=== PATIENT | male | born 1940 | race Caucasian/White ===

== ENCOUNTER 2016-10-25 09:28 | Inpatient (IN) | payer MEDICARE ==
[2016-10-25] VITALS (12 sets, daily range): BP systolic 92–138; BP diastolic 62–75; PULSE 63–83; RESP 18–29; TEMP 96.2–98.5; O2SAT 83–100
[~2016-10-25] VITALS: Ht 165.1 cm; Wt 65.1 kg
[2016-10-25] MEDS ORDERED: NS 1000P @30 MLS/HR (KVO) IV SCH (10:00)
[2016-10-25] MEDS ORDERED: TAMS0.4C4 PO (10:18)
[2016-10-25] MEDS ORDERED: METF1000 PO (10:18)
[2016-10-25] MEDS ORDERED: ATOR10TA15 PO (10:18)
[2016-10-25] MEDS ORDERED: IPRASOL INH (10:18)
[2016-10-25] MEDS ORDERED: LEVEMIR SQ (10:18)
[2016-10-25] MEDS ORDERED: FINA5TAB2 PO (10:18)
[2016-10-25] MEDS ORDERED: MONT10TA4 PO (10:18)
[2016-10-25] MEDS ORDERED: BACT400T PO (10:18)
[2016-10-25] MEDS ORDERED: HOME OXYGEN NAS.CANULA (10:18)
[2016-10-25] MEDS ORDERED: PRED10 PO (10:18)
[2016-10-25 10:40] LABS: AUTOMATED NEUTROPHIL # 12.1 TH/MM3 (1.8-7.7); BASOPHIL % 0.3 % (0.0-2.0); EOSINOPHIL # 0.4 TH/MM3 (0-0.4); EOSINOPHIL % 2.4 % (0.0-4.0); LYMPH % 12.7 % (9.0-44.0); LYMPHOCYTE # 1.9 TH/MM3 (1.0-4.8); MEAN CELL VOLUME 94.5 FL (80.0-100.0); MEAN CORPUSCULAR HEMOGLOBIN 31.9 PG (27.0-34.0); MEAN CORPUSCULAR HGB CONC 33.8 % (32.0-36.0); NEUT % 79.6 % (16.0-70.0); PLATELET COUNT 218 TH/MM3 (150-450); RED BLOOD COUNT 3.91 MIL/MM3 (4.50-5.90); WHITE BLOOD COUNT 15.2 TH/MM3 (4.0-11.0)
[2016-10-25 10:47] LABS: APTT (PATIENT) 23.6 SEC (24.3-30.1); PROTHROMBIN TIME - PATIENT 11.2 SEC (9.8-11.6)
[2016-10-25 10:48] LABS: HEMO FLAGS AUTO DIFF
[2016-10-25 10:53] LABS: BICARBONATE 26.4 MEQ/L (21.0-32.0); POTASSIUM 3.9 MEQ/L (3.5-5.1)
[2016-10-25] MEDS ORDERED: IOHEXOL 350 MG/ML 100 ML BTL (for Cath Lab) OTHER ONE (11:14)
[2016-10-25 11:38] LABS: BANDS 5 % (0-6); EOSINOPHILS 4 % (0-4); MYELOCYTES 2 % (0-0); NEUTROPHIL # MANUAL DIFF 12.8 TH/MM3 (1.8-7.7); POLYS (SEG NEUTROPHILS) 77 % (16-70); WBC DIFF SAMPLE 100
[2016-10-25 11:39] LABS: PLATELET ESTIMATE SMEAR NORMAL (NORMAL); PLATELET MORPHOLOGY NORMAL (NORMAL); SCAN/DIFF FINAL DIFF MANUAL
[2016-10-25] MEDS ORDERED: HEPARIN-NS/PF INJ 500 ML ONE (14:03)
[2016-10-25] MEDS ORDERED: MIDAZOLAM HCL 2 MG/2 ML VIAL ONE ×2 (14:04→15:47)
[2016-10-25] MEDS ORDERED: HEPARIN SODIUM - IV 10,000 UNITS/10 ML VIAL ONE (14:52)
[2016-10-25] MEDS ORDERED: TICAGRELOR 90 MG TAB PO ONE (15:56)
--- NOTE | 2016-10-25 16:42 | EKG ---
Date Performed: 10/25/2016 Time Performed: 11:00:56 PTAGE: 76 years EKG: Sinus rhythm with PAC(s) Inferior and anterior T wave changes are nonspecific Borderline ECG NO PREVIOUS TRACING DOCTOR: Fredy Wise Interpretating Date/Time 10/25/2016 16:41:03
[2016-10-25] MEDS ORDERED: BACITRACIN OINT 0.9 GM PKT TOP ONE (17:30)
[2016-10-25] MEDS ORDERED: SODIUM CHLOR 0.9% 1000 ML INJ 1,000 ML IV SCH (18:10)
[2016-10-25] MEDS ORDERED: LIDOCAINE HCL 1% 50 ML VIAL INFIL PRN (18:15)
[2016-10-25] MEDS ORDERED: LIDOCAINE 2% JELLY 30 ML TUBE TOP PRN (18:15)
[2016-10-25] MEDS ORDERED: ACETAMINOPHEN 325 MG TAB PO PRN (18:15)
[2016-10-25] MEDS ORDERED: MISC INFORMATION XX ONE (18:15)
[2016-10-25] MEDS ORDERED: ATROPINE SULFATE 1 MG/ML VIAL IV PRN (18:15)
[2016-10-25] MEDS ORDERED: SODIUM CHLOR 0.9% 250 ML INJ 250 ML IV PRN (18:15)
[2016-10-25] MEDS: ASPIRIN 81 MG CHEW TAB PO SCH (18:15)
--- NOTE | 2016-10-25 18:53 | HHI.PR ---
Immediate Post Op Note Procedure Date: Oct 25, 2016 Pre Op Diagnosis: Angina Post Op Diagnosis: CAD Surgeon: Justin Pacheco MD, Facc Box Office Manager(s): NONE Procedure: Cath, LAD stent Findings: Severe LAD stenosis Complications: none Specimen(s) removed: none Estimated blood loss: below 10 cc Patient to: Other Patient Condition: Good Justin Pacheco MD Oct 25, 2016 18:53
[2016-10-25 19:30] LABS: BLOOD GAS BASE EXCESS -2.9 mmol/L (-2-2); BLOOD GAS CARBOXYHEMOGLOBIN 1.9 % (0-4); BLOOD GAS HCO3 20 mmol/L (22-26); BLOOD GAS METHEMOGLOBIN 1.2 % (0-2); BLOOD GAS O2 HGB SATURATION 69 % (90-100); BLOOD GAS OXYGEN CONTENT 12.7 Vol % (12.0-20.0); BLOOD GAS PCO2 28 mmHg (38-42); BLOOD GAS PO2 36 mmHg (61-120); BLOOD GAS TOTAL HGB 13.2 G/DL (12.0-16.0); TEMP CORR TO 98.6
[2016-10-25 19:31] LABS: CRITICAL VALUE YES; DRAW SITE RT RADIAL; FIO2 100 %; LITER FLOW 15 L/M; NUMBER OF ARTERIAL PUNCTURES 1; OXYGEN DEVICE NONE REBREATHER; STAT YES; ULNAR PULSE PRESENT
[2016-10-25] MEDS ORDERED: ETOMIDATE 20 MG/10 ML VIAL ONE (19:54)
--- NOTE | 2016-10-25 19:57 | HHI.HP ---
HPI Service Critical Care Medicine Primary Care Physician Juan Lopez M.D. Admission Diagnosis Diagnosis: (1) Pulmonary fibrosis (2) Diastolic CHF, acute (3) S/P coronary artery stent placement (4) Arteriosclerotic heart disease (ASHD) (5) Respiratory failure, acute (6) Leukocytosis Travel History International Travel<30 Days: No Contact w/Intl Traveler <30 Da: No Traveled to Known Affected Are: No History of Present Illness History somewhat limited by patients degree of respiratory distress. 76-year-old male with past medical history of coronary artery disease , hyperlipidemia, diabetes mellitus, pulmonary fibrosis with 4 L O2 requirement , diabetes mellitus, who presented to [facility] today for outpatient cardiac catheterization. He underwent atherectomy and drug-eluting stent to the LAD (R femoral approach, s/p angioseal) by Dr. Pacheco. Post procedure (~16:15) he was on nonrebreather. He respiratory distress resulting in Halicat and transfer to ICU. He had been coughing a lot with some sputum production that was blood tinged. I was contacted upon arrival to evaluate patient who is tachypneic in 40s with increased work of breathing with sats 70% on NR. BP 138/71, sinus 70s. Placing on NIPPV. Denies chest pain. Had normal EF 55% by cath. He was recently hospitalized at [facility] for respiratory distress about 2 weeks ago and treated with steroids, nebs, levaquin. He is agreeable to intubation if needed. Review of Systems Respiratory: COMPLAINS OF: Sputum production, Shortness of breath Past Family Social History Allergies: Coded Allergies: Penicillin (Verified Allergy, Mild, 10/25/16) feet swelling Past Medical History Coronary artery disease Diabetes Hyperlipidemia Pulmonary fibrosis, diagnosed ~4 years ago. On 4 L home O2, no prior intubations -One prior hospitalization for respiratory symptoms, 2 weeks ago, [facility]. Was on Bipap and responded well. Reportedly all cultures negative. Had CT that showed "inflammation" - reportedly secondary to hypersensitivity pneumonitis. Has had lung biopsy. Followed by Dr. Garsia as outpatient. Also known to Dr. Ball from prior hospitalization BPH He reports the penicillin has previously caused feet swelling. Denies any respiratory symptoms, throat swelling, or hives. Past Surgical History Denies Reported Medications Finesteride 5 milligrams by mouth daily Prednisone 10 mg by mouth 3 times a day Tamulosin 0.4 mill grams by mouth daily at bedtime DuoNeb every 8 hours Metformin 1000 mg by mouth twice a day Detemir 8 units subcutaneous Singulair 10 mg by mouth daily at bedtime Bactrim 1 tab by mouth twice a day Family History Unable to obtain family history from patient due to his clinical condition. Reviewed EMR and did not locate any significant family medical history Social History Is a former smoker. Records indicate that he smoked about one year and quit smoking 40 years ago Drinks alcohol occasionally No illicit drug use Physical Exam Vital Signs Vital Signs Date Time Temp Pulse Resp B/P Pulse Ox O2 Delivery O2 Flow Rate FiO2 10/25/16 18:49 96.2 64 20 111/66 89 10/25/16 18:28 96.2 67 24 118/67 87 10/25/16 18:27 96.2 66 24 113/75 86 10/25/16 18:14 91 Non-Rebreather 15.00 100 10/25/16 18:00 96.2 65 24 113/72 88 10/25/16 17:50 96.2 65 24 113/72 88 10/25/16 10:15 97.5 63 18 92/62 94 Physical Exam Temps 98.5 blood pressure 138/71 pulse 68 sats 75% on nonrebreather GENERAL: Well-nourished, well-developed patient who is anxious appearing, and respiratory distress SKIN: Dry, no diaphoresis. HEAD: Atraumatic. Normocephalic. EYES: Pupils equal and round. No scleral icterus. No injection or drainage. ENT: No nasal bleeding or discharge. Mucous membranes moist, placing on Bipap. NECK: Trachea midline. No JVD. CARDIOVASCULAR: Regular rate and rhythm, sinus on monitor. No murmurs rubs or gallops. RESPIRATORY: Tachypneic with accessory muscle use. There are coarse bibasilar rales such as with pulmonary fibrosis, without wheezing or rhonchi GASTROINTESTINAL: Abdomen soft, non-tender, nondistended. Bowel sounds present. MUSCULOSKELETAL: Extremities without clubbing, cyanosis. No hematoma or bleeding noted right groin. Distal pulses intact. No significant edema. NEUROLOGICAL: Awake and alert. No obvious cranial nerve deficits. Motor grossly within normal limits, moving all extremities. Oriented, difficult to assess speech due to Bipap. Laboratory Laboratory Tests Test 10/25/16 10/25/16 09:55 10:18 White Blood Count 15.2 Red Blood Count 3.91 Hemoglobin 12.5 Hematocrit 37.0 Mean Corpuscular Volume 94.5 Mean Corpuscular Hemoglobin 31.9 Mean Corpuscular Hemoglobin 33.8 Concent Red Cell Distribution Width 14.0 Platelet Count 218 Mean Platelet Volume 7.2 Neutrophils (%) (Auto) 79.6 Lymphocytes (%) (Auto) 12.7 Monocytes (%) (Auto) 5.0 Eosinophils (%) (Auto) 2.4 Basophils (%) (Auto) 0.3 Neutrophils # (Auto) 12.1 Lymphocytes # (Auto) 1.9 Monocytes # (Auto) 0.8 Eosinophils # (Auto) 0.4 Basophils # (Auto) 0.0 CBC Comment AUTO DIFF Differential Total Cells 100 Counted Neutrophils % (Manual) 77 Band Neutrophils % 5 Lymphocytes % 11 Monocytes % 1 Eosinophils % 4 Neutrophils # (Manual) 12.8 Myelocytes 2 Differential Comment FINAL DIFF MANUAL Platelet Estimate NORMAL Platelet Morphology Comment NORMAL Red Cell Morphology Comment NORMAL Prothrombin Time 11.2 Prothromb Time International 1.0 Ratio Activated Partial 23.6 Thromboplast Time Sodium Level 140 Potassium Level 3.9 Chloride Level 106 Carbon Dioxide Level 26.4 Anion Gap 8 Blood Urea Nitrogen 21 Creatinine 1.00 Estimat Glomerular Filtration 72 Rate Random Glucose 114 Calcium Level 8.8 Blood Gas Puncture Site RT RADIAL Blood Gas Patient Temperature 98.6 Blood Gas HCO3 20 Blood Gas Base Excess -2.9 Blood Gas Oxygen Saturation 69 Arterial Blood pH 7.47 Arterial Blood Partial 28 Pressure CO2 Arterial Blood Partial 36 Pressure O2 Arterial Blood Oxygen Content 12.7 Arterial Blood 1.9 Carboxyhemoglobin Arterial Blood Methemoglobin 1.2 Blood Gas Hemoglobin 13.2 Oxygen Delivery Device NONE REBREATHER Blood Gas Liter Flow 15 Blood Gas Inspired Oxygen 100 Result Diagram: 10/25/1655 10/25/1655 Assessment and Plan Assessment and Plan NEURO: Denies pain. 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 Will continue Bipap as he appears to be responding. He is agreeable to intubation if needed Duoneb every 6 hours. Albuterol every 2 hours when necessary. Solumedrol 125 mg IV x1. Solumedrol 40 mg IV q8.Previously on prednisone [address] Garsia following recent hospitalization Continue Singulair 10 mg by mouth daily CXR with bilateral interstitial opacities. No prior for comparison. May be secondary ILD, though appears may be component of edema. Certified Residential Medication Aide indicated patient had received fluids and contrast during case. Will give lasix 40 mg IV in effort to avoid intubation. CV: CAD Hyperlipidemia Arthrectomy and FATIMAH to LAD per Dr. Pacheco 10/25/16, R femoral approach with angioseal Normal EF 55% per cath Doesn't look like stent occlusion because: EKG shows no ST deviation. Troponin 0.5. No chest pain. Discussed with RN, will ensure he gets Brilinta dose tonight. Continue Brilinta 90 po bid. Cardiology following, Dr. Pacheco. Dr. Blair updated overnight regarding transfer. GI: NPO. FEN/RENAL/Urology: BPH Continue finasteride 5 mg po daily, okay to hold tonights dose in view of respiratory distress. Domínguez needed to monitor UOP and because patient getting diuretic while in respiratory distress. ID: Leukocytosis -?steroid induced Had recent hospitalization 2 weeks ago. Cultures negative at that time, had been on bactrim as outpatient. Will check blood cultures and cover with aztreonam IV empirically given recent IPF exacerbation. HEME: Monitor CBC ENDO: Diabetes mellitus Hold metformin. Low dose insulin sliding scale ac/hs. PROPH: Heparin subcutaneous for DVT prophylaxis. Protonix 40 mg IV daily for stress ulcer prophylaxis ACCESS: Peripheral IV providing adequate access at this time Discussed with family medicine residents who responded to Halicat. Updated Dr. Blair, cardiology. Updated patient and his and bedside and questions answered. CCT 60 minutes exclusive of separately billable procedures. Elizabeth Romo MD Oct 25, 2016 19:57
[2016-10-25] MEDS ORDERED: PROPOFOL 1000 MG/100 ML INJ 100 ML ONE (19:58)
[2016-10-25] MEDS ORDERED: SODIUM CHLORIDE 0.9% FLUSH 5 ML FLUSH IVF PRN (20:00)
--- NOTE | 2016-10-25 20:05 | RADRPT ---
EXAM DATE/TIME: 10/25/2016 19:22 [place] COMPARISON: No previous studies available for comparison. INDICATIONS : Short of breath. MEDICAL HISTORY : Congestive heart failure. SURGICAL HISTORY : Pacemaker. ENCOUNTER: Initial ACUITY: 1 day PAIN SCORE: 0/10 LOCATION: Bilateral chest FINDINGS: The patient has a bilead pacemaker in place from the left subclavian approach. The hear t size is upper limits of normal. The lungs demonstrate diffuse interstitial disease. Significant e ffusion is not clearly seen. CONCLUSION: Diffuse interstitial disease. It is difficult to determine if this is acute or chron ic. If this is acute it could represent diffuse edema. Chronic interstitial disease could have a sim ilar appearance in the correct clinical situation. Pavan Azar MD on October 25, 2016 at 20:01 Board Certified Radiologist. This report was verified electronically.
[2016-10-25] MEDS ORDERED: methylPREDNISolone SOD SUCC 125 MG/2 ML VIAL IV PUSH ONE (20:15)
[2016-10-25] MEDS ORDERED: FUROSEMIDE 20 MG/2 ML VIAL IV PUSH ONE ×2 (20:15)
[2016-10-25] MEDS ORDERED: RESP: ALBUTEROL 2.5 MG/3 ML NEB (PRN) NEB (20:15)
[2016-10-25] MEDS ORDERED: RESP: ALBUTEROL 2.5 MG/IPRATROPIUM 0.5 MG NEB (SCH) NEB ONE (20:15)
[2016-10-25] MEDS: CARVEDILOL 3.125 MG TAB PO SCH (20:38)
[2016-10-25] MEDS: TAMSULOSIN HCL 0.4 MG CAP PO SCH (20:39)
[2016-10-25] MEDS: ATORVASTATIN 10 MG TAB PO SCH (20:39)
[2016-10-25] MEDS: SODIUM CHLORIDE 0.9% FLUSH 5 ML FLUSH IVF SCH (20:39)
[2016-10-25] MEDS: MONTELUKAST SODIUM 10 MG TAB PO SCH (20:40)
--- NOTE | 2016-10-25 20:42 | HHI.PR ---
Addendum to Inpatient Note Addendum Reason: Additional Documentation Additional Information S: CaitlinT called. Residents responded to patient in respiratory distress s/p cardiac catheterization and stenting of LAD. Per interview with patient's family , patient with a history of COPD and pulmonary fibrosis and recent ICU admission. Per nurse report, patient has been satting in the 80s for about 2 hours off and on since his cardiac catheterization procedure. O: Vitals: Afebrile, pulse 60s to 80s, respiratory rate 20s to 30s, blood pressure 100s over 60s to 70s, satting 70s to 80s on nonrebreather at 15 L/m Gen.: Patient in respiratory distress with increased work of breathing, still able to communicate. CV: Regular rate Respiratory: Respiratory distress with increased work of breathing, belly breathing, tripoding, tachypnea. Lungs clear to auscultation bilaterally. Patient observed coughing up grossly bloody sputum. Neuro: Awake and alert A/P: 76-year-old man with a history of COPD, pulmonary fibrosis, a few hours s/ p cardiac catheterization with stents to his LAD and respiratory distress. EKG, chest x-ray Troponin, CK-MB, CMP, CBC, ABG BiPAP and transfer to ICU/[facility] DuoNeb's, IV steroids Sputum Gram stain and culture Patient seen and discussed with Dr. Nagi Rivera. Discussed with family. Follow up: EKG consistent with prior EKGs. Accompanied patient to ICU under the care of Dr. Romo. Patient satting in the mid 90s on BiPAP. Vincent Rinaldi MD R1 Oct 25, 2016 20:42
[2016-10-25] MEDS ORDERED: SULFAMETHOXAZOLE-TRIMETHOPRIM 400-80 MG TAB PO SCH (21:00)
[2016-10-25 21:06] LABS: ALKALINE PHOSPHATASE 115 U/L (45-117); ALT (GPT) 33 U/L (12-78); ANION GAP 9 MEQ/L (5-15); AST (GOT) 32 U/L (15-37); BLOOD UREA NITROGEN 15 MG/DL (7-18); CHLORIDE 103 MEQ/L (98-107); GLOMERULAR FILTRATION RATE 78 ML/MIN (>89); SODIUM (NA) 134 MEQ/L (136-145); TOTAL BILIRUBIN ADULT 0.6 MG/DL (0.2-1.0)
[2016-10-25] MEDS: RESP: ALBUTEROL 2.5 MG/IPRATROPIUM 0.5 MG NEB (SCH) NEB (21:10)
[2016-10-25 21:14] LABS: CREATINE KINASE 75 U/L (39-308); POTASSIUM 4.8 MEQ/L (3.5-5.1)
[2016-10-25 21:53] LABS: BLOOD, URINE NEG (NEG); GLUCOSE,URINE TRACE mg/dL (NEG); KETONE, URINE NEG (NEG); NITRITE,URINE NEG (NEG); PH, URINE 5.5 (5.0-8.5); SQUAMOUS EPITHELIAL CELL URINE <1 /hpf (0-5); URINE COLOR LIGHT-YELLOW (YELLW/STRAW)
[2016-10-25 21:56] LABS: COMMENT (UR) CATH-CULT NOT IND; CULTURE IF INDICATED CATH CULTURE NOT IND
[2016-10-25 23:02] LABS: AUTOMATED NEUTROPHIL # 15.3 TH/MM3 (1.8-7.7); BASOPHIL % 0.1 % (0.0-2.0); EOSINOPHIL # 0.4 TH/MM3 (0-0.4); EOSINOPHIL % 2.5 % (0.0-4.0); HEMATOCRIT 38.7 % (39.0-51.0); LYMPH % 2.8 % (9.0-44.0); LYMPHOCYTE # 0.5 TH/MM3 (1.0-4.8); MEAN CELL VOLUME 92.8 FL (80.0-100.0); MEAN CORPUSCULAR HEMOGLOBIN 32.2 PG (27.0-34.0); MEAN CORPUSCULAR HGB CONC 34.7 % (32.0-36.0); MONO % 2.4 % (0.0-8.0); NEUT % 92.2 % (16.0-70.0); PLATELET COUNT 239 TH/MM3 (150-450); RED BLOOD COUNT 4.17 MIL/MM3 (4.50-5.90); RED CELL DISTRIBUTION WIDTH 14.2 % (11.6-17.2); WHITE BLOOD COUNT 16.6 TH/MM3 (4.0-11.0)
[2016-10-25 23:09] LABS: HEMO FLAGS AUTO DIFF
[2016-10-25] MEDS: AZTREONAM INJ 1,000 MG in SODIUM CHLORIDE 0.9% INJ 100 ML IV SCH (23:26)
[2016-10-25] MEDS ORDERED: CHLORHEXIDINE GLUCONATE 2 % 1 PACK (2 CLOTHS)(extra cloths) TOP PRN (23:30)
[2016-10-25 23:38] LABS: BLOOD GAS BASE EXCESS -2.9 mmol/L (-2-2); BLOOD GAS CARBOXYHEMOGLOBIN 1.9 % (0-4); BLOOD GAS HCO3 20 mmol/L (22-26); BLOOD GAS METHEMOGLOBIN 1.2 % (0-2); BLOOD GAS O2 HGB SATURATION 69 % (90-100); BLOOD GAS OXYGEN CONTENT 12.7 Vol % (12.0-20.0); BLOOD GAS PCO2 28 mmHg (38-42); BLOOD GAS PO2 36 mmHg (61-120); BLOOD GAS TOTAL HGB 13.2 G/DL (12.0-16.0); TEMP CORR TO 98.6
[2016-10-25 23:39] LABS: CRITICAL VALUE YES; DRAW SITE RT RADIAL; FIO2 100 %; NUMBER OF ARTERIAL PUNCTURES 1; OXYGEN DEVICE NONE REBREATHER; STAT YES; ULNAR PULSE PRESENT
[2016-10-25 23:41] LABS: LITER FLOW 15 L/M
[2016-10-26] VITALS (15 sets, daily range): BP systolic 95–117; BP diastolic 54–61; PULSE 59–76; RESP 24–28; TEMP 97.5–98.2; O2SAT 87–99
[2016-10-26 00:39] LABS: BANDS 9 % (0-6); MYELOCYTES 2 % (0-0); NEUTROPHIL # MANUAL DIFF 15.4 TH/MM3 (1.8-7.7); POLYS (SEG NEUTROPHILS) 81 % (16-70); PROMYELOCYTES 1 % (0-0); WBC DIFF SAMPLE 100
[2016-10-26 00:41] LABS: PLATELET ESTIMATE SMEAR NORMAL (NORMAL); PLATELET MORPHOLOGY NORMAL (NORMAL); SCAN/DIFF FINAL DIFF MANUAL
[2016-10-26] MEDS: RESP: ALBUTEROL 2.5 MG/IPRATROPIUM 0.5 MG NEB (SCH) NEB ×4 (03:32→20:06)
[2016-10-26] MEDS: CHLORHEXIDINE GLUCONATE 2 % 1 PACK (2 CLOTHS)(taper/protocol) TOP SCH (04:00)
[2016-10-26] MEDS: AZTREONAM INJ 1,000 MG in SODIUM CHLORIDE 0.9% INJ 100 ML IV SCH ×3 (05:55→20:27)
[2016-10-26] MEDS ORDERED: DEXTROSE 50% IN WATER 50 ML VIAL(D50) IV PUSH PRN ×2 (07:00→08:45)
[2016-10-26] MEDS ORDERED: GLUCAGON 1 MG/ML VIAL OTHER PRN ×2 (07:00→08:45)
[2016-10-26] MEDS: CHLORHEXIDINE 0.12% (ORAL KIT) 15 ML CUP MT SCH ×2 (07:30→20:00)
[2016-10-26 07:35] LABS: AUTOMATED NEUTROPHIL # 11.9 TH/MM3 (1.8-7.7); BASOPHIL % 0.1 % (0.0-2.0); EOSINOPHIL % 0.1 % (0.0-4.0); HEMATOCRIT 37.2 % (39.0-51.0); LYMPH % 4.8 % (9.0-44.0); LYMPHOCYTE # 0.6 TH/MM3 (1.0-4.8); MEAN CORPUSCULAR HEMOGLOBIN 31.9 PG (27.0-34.0); MONO % 1.7 % (0.0-8.0); NEUT % 93.3 % (16.0-70.0); PLATELET COUNT 231 TH/MM3 (150-450); RED BLOOD COUNT 3.96 MIL/MM3 (4.50-5.90); RED CELL DISTRIBUTION WIDTH 13.9 % (11.6-17.2); WHITE BLOOD COUNT 12.8 TH/MM3 (4.0-11.0)
[2016-10-26 07:38] LABS: HEMO FLAGS AUTO DIFF
[2016-10-26] MEDS: RESP: ALBUTEROL 2.5 MG/IPRATROPIUM 0.5 MG NEB (SCH) INH ×3 (08:00→16:00)
[2016-10-26 08:08] LABS: ALKALINE PHOSPHATASE 104 U/L (45-117); ALT (GPT) 27 U/L (12-78); ANION GAP 11 MEQ/L (5-15); AST (GOT) 16 U/L (15-37); BICARBONATE 27.3 MEQ/L (21.0-32.0); BLOOD UREA NITROGEN 21 MG/DL (7-18); CHLORIDE 98 MEQ/L (98-107); GLOMERULAR FILTRATION RATE 62 ML/MIN (>89); HDL CHOLESTEROL 53.6 MG/DL (40.0-60.0); LDL CHOLESTEROL 85 MG/DL (0-99); POTASSIUM 4.3 MEQ/L (3.5-5.1); SODIUM (NA) 136 MEQ/L (136-145); TOTAL BILIRUBIN ADULT 0.6 MG/DL (0.2-1.0)
[2016-10-26 08:18] LABS: CREATINE KINASE 31 U/L (39-308)
[2016-10-26] MEDS: PANTOPRAZOLE SODIUM 40 MG VIAL IV PUSH SCH (08:41)
[2016-10-26] MEDS: HEPARIN SODIUM - SQ 10,000 UNITS/ML VIAL SQ SCH ×2 (08:42→20:24)
[2016-10-26] MEDS: CARVEDILOL 3.125 MG TAB PO SCH ×2 (08:42→20:23)
[2016-10-26] MEDS: ASPIRIN 81 MG CHEW TAB PO SCH (08:42)
[2016-10-26] MEDS: FINASTERIDE 5 MG TAB PO SCH (08:42)
[2016-10-26] MEDS: TICAGRELOR 90 MG TAB PO SCH ×2 (08:42→20:23)
[2016-10-26] MEDS: SODIUM CHLORIDE 0.9% FLUSH 5 ML FLUSH IVF SCH ×2 (08:43→20:22)
--- NOTE | 2016-10-26 08:43 | HHI.CCPN ---
Subjective Remarks/Hospital Course 76-year-old male with past medical history of coronary artery disease , hyperlipidemia, diabetes mellitus, pulmonary fibrosis with 4 L O2 requirement , diabetes mellitus, who presented to [facility] today for outpatient cardiac catheterization. He underwent atherectomy and drug-eluting stent to the LAD (R femoral approach, s/p angioseal) by Dr. Pacheco. Post procedure (~16:15) he was on nonrebreather. He respiratory distress resulting in Halicat and transfer to ICU. He had been coughing a lot with some sputum production that was blood tinged. I was contacted upon arrival to evaluate patient who is tachypneic in 40s with increased work of breathing with sats 70% on NR. BP 138/71, sinus 70s. Placing on NIPPV. Denies chest pain. Had normal EF 55% by cath. He was recently hospitalized at [facility] for respiratory distress about 2 weeks ago and treated with steroids, nebs, levaquin. He is agreeable to intubation if needed. 10/26 Patient is on BIPAP 8 with 40% FIO2. Afebrile. Feeling better he is on 4L oxygen at home for his pulm fibrosis. Objective Vital Signs Date Time Temp Pulse Resp B/P Pulse Ox O2 Delivery O2 Flow Rate FiO2 10/26/16 08:01 90 Nasal Cannula 5.00 10/26/16 08:00 61 10/26/16 08:00 97.5 25 114/61 10/26/16 04:26 40 Intake and Output 10/25/16 10/25/16 10/26/16 08:00 16:00 00:00 Output Total 1250 ml Balance -1250 ml Result Diagram: 10/26/16 0650 10/26/16 0650 Other Results Laboratory Tests Test 10/25/16 10/25/16 10/25/16 10/25/16 09:55 10:18 19:18 20:22 White Blood Count 15.2 TH/MM3 Red Blood Count 3.91 MIL/MM3 Hemoglobin 12.5 GM/DL Hematocrit 37.0 % Mean Corpuscular Volume 94.5 FL Mean Corpuscular Hemoglobin 31.9 PG Mean Corpuscular Hemoglobin 33.8 % Concent Red Cell Distribution Width 14.0 % Platelet Count 218 TH/MM3 Mean Platelet Volume 7.2 FL Neutrophils (%) (Auto) 79.6 % Lymphocytes (%) (Auto) 12.7 % Monocytes (%) (Auto) 5.0 % Eosinophils (%) (Auto) 2.4 % Basophils (%) (Auto) 0.3 % Neutrophils # (Auto) 12.1 TH/MM3 Lymphocytes # (Auto) 1.9 TH/MM3 Monocytes # (Auto) 0.8 TH/MM3 Eosinophils # (Auto) 0.4 TH/MM3 Basophils # (Auto) 0.0 TH/MM3 CBC Comment AUTO DIFF Differential Total Cells 100 Counted Neutrophils % (Manual) 77 % Band Neutrophils % 5 % Lymphocytes % 11 % Monocytes % 1 % Eosinophils % 4 % Neutrophils # (Manual) 12.8 TH/MM3 Myelocytes 2 % Differential Comment FINAL DIFF MANUAL Platelet Estimate NORMAL Platelet Morphology Comment NORMAL Red Cell Morphology Comment NORMAL Prothrombin Time 11.2 SEC Prothromb Time International 1.0 RATIO Ratio Activated Partial 23.6 SEC Thromboplast Time Sodium Level 140 MEQ/L Potassium Level 3.9 MEQ/L Chloride Level 106 MEQ/L Carbon Dioxide Level 26.4 MEQ/L Anion Gap 8 MEQ/L Blood Urea Nitrogen 21 MG/DL Creatinine 1.00 MG/DL Estimat Glomerular Filtration 72 ML/MIN Rate Random Glucose 114 MG/DL Calcium Level 8.8 MG/DL Blood Gas Puncture Site RT RADIAL RT RADIAL Blood Gas Patient Temperature 98.6 98.6 Blood Gas HCO3 20 mmol/L 20 mmol/L Blood Gas Base Excess -2.9 mmol/L -2.9 mmol/L Blood Gas Oxygen Saturation 69 % 69 % Arterial Blood pH 7.47 7.47 Arterial Blood Partial 28 mmHg 28 mmHg Pressure CO2 Arterial Blood Partial 36 mmHg 36 mmHg Pressure O2 Arterial Blood Oxygen Content 12.7 Vol % 12.7 Vol % Arterial Blood 1.9 % 1.9 % Carboxyhemoglobin Arterial Blood Methemoglobin 1.2 % 1.2 % Blood Gas Hemoglobin 13.2 G/DL 13.2 G/DL Oxygen Delivery Device NONE NONE REBREATHER REBREATHER Blood Gas Liter Flow 15 L/M 15 L/M Blood Gas Inspired Oxygen 100 % 100 % Urine Color LIGHT-YELLOW Urine Turbidity CLEAR Urine pH 5.5 Urine Specific [place] GREATER THAN 1.050 Urine Protein TRACE mg/dL Urine Glucose (UA) TRACE mg/dL Urine Ketones NEG mg/dL Urine Occult Blood NEG Urine Nitrite NEG Urine Bilirubin NEG Urine Urobilinogen LESS THAN 2.0 MG/DL Urine Leukocyte Esterase NEG Urine WBC 1 /hpf Urine Squamous Epithelial <1 /hpf Cells Microscopic Urinalysis Comment CATH-CULT NOT IND Test 10/25/16 10/25/16 10/25/16 10/26/16 20:29 21:30 22:37 06:50 Sodium Level 134 MEQ/L 136 MEQ/L Potassium Level 4.8 MEQ/L 4.3 MEQ/L Chloride Level 103 MEQ/L 98 MEQ/L Carbon Dioxide Level 22.0 MEQ/L 27.3 MEQ/L Anion Gap 9 MEQ/L 11 MEQ/L Blood Urea Nitrogen 15 MG/DL 21 MG/DL Creatinine 0.94 MG/DL 1.14 MG/DL Estimat Glomerular Filtration 78 ML/MIN 62 ML/MIN Rate Random Glucose 139 MG/DL 232 MG/DL Calcium Level 8.4 MG/DL 8.4 MG/DL Total Bilirubin 0.6 MG/DL 0.6 MG/DL Aspartate Amino Transf 32 U/L 16 U/L (AST/SGOT) Alanine Aminotransferase 33 U/L 27 U/L (ALT/SGPT) Alkaline Phosphatase 115 U/L 104 U/L Total Creatine Kinase 75 U/L 31 U/L Troponin I 0.05 NG/ML Total Protein 6.7 GM/DL 6.3 GM/DL Albumin 3.3 GM/DL 3.0 GM/DL Nasal Screen MRSA (PCR) NEGATIVE White Blood Count 16.6 TH/MM3 12.8 TH/MM3 Red Blood Count 4.17 MIL/MM3 3.96 MIL/MM3 Hemoglobin 13.4 GM/DL 12.6 GM/DL Hematocrit 38.7 % 37.2 % Mean Corpuscular Volume 92.8 FL 94.0 FL Mean Corpuscular Hemoglobin 32.2 PG 31.9 PG Mean Corpuscular Hemoglobin 34.7 % 34.0 % Concent Red Cell Distribution Width 14.2 % 13.9 % Platelet Count 239 TH/MM3 231 TH/MM3 Mean Platelet Volume 6.9 FL 7.0 FL Neutrophils (%) (Auto) 92.2 % 93.3 % Lymphocytes (%) (Auto) 2.8 % 4.8 % Monocytes (%) (Auto) 2.4 % 1.7 % Eosinophils (%) (Auto) 2.5 % 0.1 % Basophils (%) (Auto) 0.1 % 0.1 % Neutrophils # (Auto) 15.3 TH/MM3 11.9 TH/MM3 Lymphocytes # (Auto) 0.5 TH/MM3 0.6 TH/MM3 Monocytes # (Auto) 0.4 TH/MM3 0.2 TH/MM3 Eosinophils # (Auto) 0.4 TH/MM3 0.0 TH/MM3 Basophils # (Auto) 0.0 TH/MM3 0.0 TH/MM3 CBC Comment AUTO DIFF AUTO DIFF Differential Total Cells 100 Counted Neutrophils % (Manual) 81 % Band Neutrophils % 9 % Lymphocytes % 2 % Monocytes % 5 % Neutrophils # (Manual) 15.4 TH/MM3 Myelocytes 2 % Promyelocytes 1 % Differential Comment FINAL DIFF MANUAL Platelet Estimate NORMAL Platelet Morphology Comment NORMAL Red Cell Morphology Comment NORMAL Triglycerides Level 143 MG/DL Cholesterol Level 167 MG/DL LDL Cholesterol 85 MG/DL HDL Cholesterol 53.6 MG/DL Cholesterol/HDL Ratio 3.11 RATIO Imaging Last Impressions Chest X-Ray 10/25/16 0000 Signed Impressions: Service Date/Time: Tuesday, October 25, 2016 19:22 - CONCLUSION: Diffuse interstitial disease. It is difficult to determine if this is acute or chronic. If this is acute it could represent diffuse edema. Chronic interstitial disease could have a similar appearance in the correct clinical situation. Pavan Azar MD Objective Remarks GENERAL: Well-nourished, well-developed patient on BIPAP 15/8 with 40% FIO2. SKIN: Dry, no diaphoresis. HEAD: Atraumatic. Normocephalic. EYES: Pupils equal and round. No scleral icterus. No injection or drainage. ENT: No nasal bleeding or discharge. Mucous membranes moist, placing on Bipap. NECK: Trachea midline. No JVD. CARDIOVASCULAR: Regular rate and rhythm, sinus on monitor. No murmurs rubs or gallops. RESPIRATORY: coarse bibasilar rales without wheezing , b/l equal air entry. GASTROINTESTINAL: Abdomen soft, non-tender, nondistended. Bowel sounds present. MUSCULOSKELETAL: Extremities without clubbing, cyanosis. No hematoma or bleeding noted right groin. Distal pulses intact. No significant edema. NEUROLOGICAL: Awake and alert. No obvious cranial nerve deficits. Motor grossly within normal limits, moving all extremities. A/P Assessment and Plan NEURO: Awake and alert, avoid sedatives. 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 Hold PO prednisone Continue Singulair 10 mg by mouth daily CXR with bilateral interstitial opacities. No prior for comparison. May be secondary ILD, though appears may be component of edema. CV: CAD Hyperlipidemia Arthrectomy and FATIMAH to LAD per Dr. Pacheco 10/25/16, R femoral approach with angioseal Monitor HR and BP keep MAP>65mmHg Normal EF 55% per cath Continue ASA<,Lipitor , Coreg 3.125mg BID, Brilinta 90 mg po bid. Cardiology following, Dr. Pacheco. GI: On Heart healthy diet RENAL/Urology: BPH Continue finasteride 5 mg po daily, Monitor renal function, I/O's, electrolytes replacement as needed. ID: Leukocytosis -?steroid induced ( trending down) Continue empiric abx (Aztreonam IV) given recent IPF exacerbation. Follow up on BC, check sputum cx, strep pneumonia and Legionella urinary Ag HEME: Monitor CBC ENDO: Diabetes mellitus Place on medium SSI with accuchecks. PROPH: Heparin subcutaneous for DVT prophylaxis. Protonix 40 mg IV daily for stress ulcer prophylaxis ACCESS: Peripheral IV providing adequate access at this time Level 3 Virgen Bernal MD Oct 26, 2016 08:43
[2016-10-26] MEDS: INSULIN NovoLIN REGULAR SUPPLEMENTAL SCALE SQ SCH ×3 (08:45→20:24)
[2016-10-26] MEDS ORDERED: predniSONE 10 MG TAB PO SCH (09:00)
--- NOTE | 2016-10-26 09:08 | PD.CARD.PN ---
Subjective Subjective Remarks Events of last evening noted. Patient breathing much better this AM. Denies CP. Objective Medications Current Medications Medications (Trade) Dose Ordered Sig/Gino Route PRN Reason Start Time Stop Time Status Last Admin Dose Admin Finasteride (Proscar) 5 mg DAILY PO 10/26/16 09:00 10/26/16 08:42 Montelukast Sodium (Singulair) 10 mg HS PO 10/25/16 21:00 Prednisone (Deltasone) 10 mg TID PO 10/26/16 09:00 Hold Tamsulosin HCl (Flomax) 0.4 mg HS PO 10/25/16 21:00 Lidocaine HCl (Xylocaine 2% Jelly) 1 applic UNSCH PRN TOP CATHETER INSERTION 10/25/16 18:15 Acetaminophen (Tylenol) 325 mg Q4H PRN PO PAIN SCALE 1 TO 5 10/25/16 18:15 Temazepam (Restoril) 15 mg HS PRN PO SLEEP 10/25/16 18:15 Aspirin (Aspirin Chew) 81 mg DAILY PO 10/25/16 18:15 10/26/16 08:42 Ticagrelor (Brilinta) 90 mg BID PO 10/26/16 09:00 10/26/16 08:42 Atropine Sulfate (Atropine Inj) 0.5 mg UNSCH PRN IV VAGAL REPONSE 10/25/16 18:15 Lidocaine HCl (Xylocaine 1% Inj (50 ml)) 10 ml UNSCH PRN INFIL SHEATH REMOVAL 10/25/16 18:15 10/26/16 18:14 Carvedilol (Coreg) 3.125 mg BID PO 10/25/16 21:00 10/26/16 08:42 Atorvastatin Calcium (Lipitor) 40 mg HS PO 10/25/16 21:00 IV Flush (NS Flush) 2 ml UNSCH PRN IVF FLUSH AFTER USING IV ACCESS 10/25/16 20:00 IV Flush (NS Flush) 2 ml BID IVF 10/25/16 21:00 10/26/16 08:43 Chlorhexidine Gluconate 15 ml 15 ml BID@08,20 MT 10/25/16 20:00 Aztreonam/Sodium Chloride (Azactam Inj/NS Inj) 100 ml @ 200 mls/hr Q8H IV 10/25/16 21:00 10/26/16 05:55 Miscellaneous Information Patient in critical care unit? Ass... Q361D XX 10/25/16 23:30 10/25/16 23:26 Chlorhexidine Gluconate (Chlorhexidine 2% Cloth) 3 pack DAILY@04 TOP 10/26/16 04:00 10/30/16 04:01 10/26/16 04:00 Chlorhexidine Gluconate (Chlorhexidine 2% Cloth) 3 pack UNSCH PRN TOP HYGIENIC CARE 10/25/16 23:30 10/30/16 23:20 Dextrose (D50w (Vial) Inj) 25 ml UNSCH PRN IV PUSH HYPOGLYCEMIA-SEE COMMENTS 10/26/16 07:00 Glucagon (Glucagon Inj) 1 mg UNSCH PRN OTHER HYPOGLYCEMIA-SEE COMMENTS 10/26/16 07:00 Pantoprazole Sodium (Protonix Inj) 40 mg Q24H IV PUSH 10/26/16 07:00 10/26/16 08:41 Heparin Sodium (Porcine) (Heparin Inj) 5,000 units Q12HR SQ 10/26/16 09:00 10/26/16 08:42 Methylprednisolone Sodium Succinate (SoluMEDROL INJ) 40 mg Q8HR IV PUSH 10/26/16 08:45 UNV Dextrose (D50w (Vial) Inj) 25 ml UNSCH PRN IV PUSH HYPOGLYCEMIA-SEE COMMENTS 10/26/16 08:45 UNV Glucagon (Glucagon Inj) 1 mg UNSCH PRN OTHER HYPOGLYCEMIA-SEE COMMENTS 10/26/16 08:45 UNV Insulin Human Regular (NovoLIN R SUPPLEMENTAL SCALE) 1 Q6H SQ 10/26/16 08:45 UNV Vital Signs / I&O Vital Signs Date Time Temp Pulse Resp B/P Pulse Ox O2 Delivery O2 Flow Rate FiO2 10/26/16 08:01 90 Nasal Cannula 5.00 10/26/16 08:00 61 10/26/16 08:00 97.5 61 25 114/61 99 10/26/16 06:00 61 10/26/16 04:26 97 40 10/26/16 04:00 97.9 60 26 106/60 97 10/26/16 04:00 60 10/26/16 02:00 59 10/26/16 01:02 96 40 10/26/16 00:00 98.2 61 28 95/54 98 10/26/16 00:00 61 10/25/16 22:00 64 10/25/16 21:10 100 60 10/25/16 20:15 100 100 10/25/16 20:13 98.5 83 29 138/71 83 10/25/16 20:00 72 10/25/16 18:49 96.2 64 20 111/66 89 10/25/16 18:28 96.2 67 24 118/67 87 10/25/16 18:27 96.2 66 24 113/75 86 10/25/16 18:14 91 Non-Rebreather 15.00 100 10/25/16 18:00 96.2 65 24 113/72 88 10/25/16 17:50 96.2 65 24 113/72 88 10/25/16 10:15 97.5 63 18 92/62 94 I/O 10/25/16 10/25/16 10/25/16 10/26/16 10/26/16 10/26/16 07:00 15:00 23:00 07:00 15:00 23:00 Intake Total 156 ml Output Total 1250 ml 1000 ml Balance -1250 ml -844 ml Intake IV Total 156 ml Output Urine Total 1250 ml 1000 ml Physical Exam VSS, afeb. No JVD Lungs few basilar cracles. Heart: RRR Ext: Right groin cath site stable. No edema . Well perfused . Neuro: Intact Laboratory Laboratory Tests Test 10/25/16 10/25/16 10/25/16 10/25/16 09:55 10:18 19:18 20:22 White Blood Count 15.2 TH/MM3 Red Blood Count 3.91 MIL/MM3 Hemoglobin 12.5 GM/DL Hematocrit 37.0 % Mean Corpuscular Volume 94.5 FL Mean Corpuscular Hemoglobin 31.9 PG Mean Corpuscular Hemoglobin 33.8 % Concent Red Cell Distribution Width 14.0 % Platelet Count 218 TH/MM3 Mean Platelet Volume 7.2 FL Neutrophils (%) (Auto) 79.6 % Lymphocytes (%) (Auto) 12.7 % Monocytes (%) (Auto) 5.0 % Eosinophils (%) (Auto) 2.4 % Basophils (%) (Auto) 0.3 % Neutrophils # (Auto) 12.1 TH/MM3 Lymphocytes # (Auto) 1.9 TH/MM3 Monocytes # (Auto) 0.8 TH/MM3 Eosinophils # (Auto) 0.4 TH/MM3 Basophils # (Auto) 0.0 TH/MM3 CBC Comment AUTO DIFF Differential Total Cells 100 Counted Neutrophils % (Manual) 77 % Band Neutrophils % 5 % Lymphocytes % 11 % Monocytes % 1 % Eosinophils % 4 % Neutrophils # (Manual) 12.8 TH/MM3 Myelocytes 2 % Differential Comment FINAL DIFF MANUAL Platelet Estimate NORMAL Platelet Morphology Comment NORMAL Red Cell Morphology Comment NORMAL Prothrombin Time 11.2 SEC Prothromb Time International 1.0 RATIO Ratio Activated Partial 23.6 SEC Thromboplast Time Sodium Level 140 MEQ/L Potassium Level 3.9 MEQ/L Chloride Level 106 MEQ/L Carbon Dioxide Level 26.4 MEQ/L Anion Gap 8 MEQ/L Blood Urea Nitrogen 21 MG/DL Creatinine 1.00 MG/DL Estimat Glomerular Filtration 72 ML/MIN Rate Random Glucose 114 MG/DL Calcium Level 8.8 MG/DL Blood Gas Puncture Site RT RADIAL RT RADIAL Blood Gas Patient Temperature 98.6 98.6 Blood Gas HCO3 20 mmol/L 20 mmol/L Blood Gas Base Excess -2.9 mmol/L -2.9 mmol/L Blood Gas Oxygen Saturation 69 % 69 % Arterial Blood pH 7.47 7.47 Arterial Blood Partial 28 mmHg 28 mmHg Pressure CO2 Arterial Blood Partial 36 mmHg 36 mmHg Pressure O2 Arterial Blood Oxygen Content 12.7 Vol % 12.7 Vol % Arterial Blood 1.9 % 1.9 % Carboxyhemoglobin Arterial Blood Methemoglobin 1.2 % 1.2 % Blood Gas Hemoglobin 13.2 G/DL 13.2 G/DL Oxygen Delivery Device NONE NONE REBREATHER REBREATHER Blood Gas Liter Flow 15 L/M 15 L/M Blood Gas Inspired Oxygen 100 % 100 % Urine Color LIGHT-YELLOW Urine Turbidity CLEAR Urine pH 5.5 Urine Specific [place] GREATER THAN 1.050 Urine Protein TRACE mg/dL Urine Glucose (UA) TRACE mg/dL Urine Ketones NEG mg/dL Urine Occult Blood NEG Urine Nitrite NEG Urine Bilirubin NEG Urine Urobilinogen LESS THAN 2.0 MG/DL Urine Leukocyte Esterase NEG Urine WBC 1 /hpf Urine Squamous Epithelial <1 /hpf Cells Microscopic Urinalysis Comment CATH-CULT NOT IND Test 10/25/16 10/25/16 10/25/16 10/26/16 20:29 21:30 22:37 06:50 Sodium Level 134 MEQ/L 136 MEQ/L Potassium Level 4.8 MEQ/L 4.3 MEQ/L Chloride Level 103 MEQ/L 98 MEQ/L Carbon Dioxide Level 22.0 MEQ/L 27.3 MEQ/L Anion Gap 9 MEQ/L 11 MEQ/L Blood Urea Nitrogen 15 MG/DL 21 MG/DL Creatinine 0.94 MG/DL 1.14 MG/DL Estimat Glomerular Filtration 78 ML/MIN 62 ML/MIN Rate Random Glucose 139 MG/DL 232 MG/DL Calcium Level 8.4 MG/DL 8.4 MG/DL Total Bilirubin 0.6 MG/DL 0.6 MG/DL Aspartate Amino Transf 32 U/L 16 U/L (AST/SGOT) Alanine Aminotransferase 33 U/L 27 U/L (ALT/SGPT) Alkaline Phosphatase 115 U/L 104 U/L Total Creatine Kinase 75 U/L 31 U/L Troponin I 0.05 NG/ML Total Protein 6.7 GM/DL 6.3 GM/DL Albumin 3.3 GM/DL 3.0 GM/DL Nasal Screen MRSA (PCR) NEGATIVE White Blood Count 16.6 TH/MM3 12.8 TH/MM3 Red Blood Count 4.17 MIL/MM3 3.96 MIL/MM3 Hemoglobin 13.4 GM/DL 12.6 GM/DL Hematocrit 38.7 % 37.2 % Mean Corpuscular Volume 92.8 FL 94.0 FL Mean Corpuscular Hemoglobin 32.2 PG 31.9 PG Mean Corpuscular Hemoglobin 34.7 % 34.0 % Concent Red Cell Distribution Width 14.2 % 13.9 % Platelet Count 239 TH/MM3 231 TH/MM3 Mean Platelet Volume 6.9 FL 7.0 FL Neutrophils (%) (Auto) 92.2 % 93.3 % Lymphocytes (%) (Auto) 2.8 % 4.8 % Monocytes (%) (Auto) 2.4 % 1.7 % Eosinophils (%) (Auto) 2.5 % 0.1 % Basophils (%) (Auto) 0.1 % 0.1 % Neutrophils # (Auto) 15.3 TH/MM3 11.9 TH/MM3 Lymphocytes # (Auto) 0.5 TH/MM3 0.6 TH/MM3 Monocytes # (Auto) 0.4 TH/MM3 0.2 TH/MM3 Eosinophils # (Auto) 0.4 TH/MM3 0.0 TH/MM3 Basophils # (Auto) 0.0 TH/MM3 0.0 TH/MM3 CBC Comment AUTO DIFF AUTO DIFF Differential Total Cells 100 Counted Neutrophils % (Manual) 81 % Band Neutrophils % 9 % Lymphocytes % 2 % Monocytes % 5 % Neutrophils # (Manual) 15.4 TH/MM3 Myelocytes 2 % Promyelocytes 1 % Differential Comment FINAL DIFF MANUAL Platelet Estimate NORMAL Platelet Morphology Comment NORMAL Red Cell Morphology Comment NORMAL Triglycerides Level 143 MG/DL Cholesterol Level 167 MG/DL LDL Cholesterol 85 MG/DL HDL Cholesterol 53.6 MG/DL Cholesterol/HDL Ratio 3.11 RATIO Imaging Last 48 hours Impressions Chest X-Ray 10/25/16 0000 Signed Impressions: Service Date/Time: Tuesday, October 25, 2016 19:22 - CONCLUSION: Diffuse interstitial disease. It is difficult to determine if this is acute or chronic. If this is acute it could represent diffuse edema. Chronic interstitial disease could have a similar appearance in the correct clinical situation. Pavan Azar MD Assessment and Plan Problem List: (1) Pulmonary fibrosis (2) Respiratory distress (3) Arteriosclerotic heart disease (ASHD) (4) S/P coronary artery stent placement Assessment and Plan CV stable today. Improved with pulmonary Rx and IV Lasix. Continue prior cardiac meds and pulmonary Rx. Discharge home when stable from pulmonary standpoint. Code Status Full Discussed Condition With Dr. Romo. Patient and family at bedside. Christian Benavides MD Oct 26, 2016 09:08
[2016-10-26] MEDS: methylPREDNISolone SOD SUCC 40 MG/1 ML VIAL IV PUSH SCH ×3 (09:35→22:05)
[2016-10-26 09:38] LABS: BANDS 9 % (0-6); MYELOCYTES 5 % (0-0); NEUTROPHIL # MANUAL DIFF 12.4 TH/MM3 (1.8-7.7); PLATELET ESTIMATE SMEAR NORMAL (NORMAL); PLATELET MORPHOLOGY NORMAL (NORMAL); POLYS (SEG NEUTROPHILS) 83 % (16-70); WBC DIFF SAMPLE 100
[2016-10-26 09:39] LABS: SCAN/DIFF FINAL DIFF MANUAL
--- NOTE | 2016-10-26 15:38 | EKG ---
Date Performed: 10/25/2016 Time Performed: 18:26:18 PTAGE: 76 years EKG: Appearsto be an atrial pacing, but variable UT intervals. Nonspecific ST-T change When comp ared to previous tracing, no significant change. Abnormal ECG PREVIOUS TRACING : 10/25/2016 11.00 DOCTOR: Nghia Ramirez Interpretating Date/Time 10/26/2016 15:36:20
--- NOTE | 2016-10-26 15:41 | EKG ---
Date Performed: 10/25/2016 Time Performed: 20:19:44 PTAGE: 76 years EKG: Atrial pacing, with generally short IL interval Since previous tracing, no significant queen ge noted Normal ECG PREVIOUS TRACING : 10/25/2016 18.26 DOCTOR: Nghia Ramirez Interpretating Date/Time 10/26/2016 15:40:45
--- NOTE | 2016-10-26 15:41 | EKG ---
Date Performed: 10/25/2016 Time Performed: 19:30:32 PTAGE: 76 years EKG: Atrial pacing, with some variability of the MO interval Premature atrial contractions may b e present. When compared to previous tracing, no significant change. Abnormal ECG PREVIOUS TRACING : 10/25/2016 18.26.18 DOCTOR: Nghia Ramirez Interpretating Date/Time 10/26/2016 15:39:14
--- NOTE | 2016-10-26 15:44 | EKG ---
Date Performed: 10/26/2016 Time Performed: 11:46:27 PTAGE: 76 years EKG: ELECTRONIC ATRIAL PACEMAKER, with variable MS interval Nonspecific ST-T wave changes. When compared to previous tracing, no significant change. ABNORMAL ECG PREVIOUS TRACING : 10/25/2016 20.19 DOCTOR: Nghia Ramirez Interpretating Date/Time 10/26/2016 15:42:09
--- NOTE | 2016-10-26 16:39 | MB ---
cc: VITALY ARCHULETA M.D., JOHN DATE OF CONSULTATION: 10/26/2016 REASON FOR CONSULTATION Respiratory failure. PRESENT ILLNESS This is a 76-year-old white male with a longstanding history of pulmonary fibrosis, O2 dependent at 4 liters, a history of diabetes, hyperlipidemia and coronary artery disease was admitted for cardiac catheterization. The patient underwent atherectomy by Dr. Pacheco with a drug-eluting stent to the LAD. The patient apparently postprocedure developed severe shortness of breath, was on a nonrebreather mask and had to have [facility] called and transferred to the ICU. He was placed on a BiPAP mask, saturations did improve and he was given diuretics since he was noted to be in some fluid overload state. Chest x-ray showed diffuse infiltrates. The patient subsequently was weaned off the BiPAP, he is now on a nasal cannula at 5-6 liters. Denies chest pain, denies leg swelling, denies any abdominal pains, nausea or vomiting. PAST MEDICAL HISTORY The past history has included - 1. History for pulmonary fibrosis as mentioned before. 2. Diabetes. 3. Hyperlipidemia. 4. History of hypersensitivity pneumonitis. 5. History of prostatic hypertrophy. 6. Coronary artery disease. PAST SURGICAL HISTORY No significant history of surgery. MEDICATIONS Med list included - 1. Prednisone 10 mg t.i.d. 2. Tamsulosin 0.4 mg h.s. 3. Finasteride 5 mg a day. 4. Detemir insulin subcu. 5. Singulair 10 mg. 6. Bactrim one tab b.i.d. HABITS The patient smoked in the past for about one year and quit. Alcohol use occasional. FAMILY HISTORY Noncontributory. ALLERGIES PENICILLIN. SYSTEM REVIEW The patient has shortness of breath, wheezing, cough, epigastric distress. Denies nausea, vomiting. There is known joint pains and does have mild leg swelling. No calf or muscle pains. PHYSICAL EXAMINATION GENERAL: This averagely built, elderly man is pale and mildly dyspneic at rest. VITAL SIGNS: Blood pressure 120/60, pulse 65, respirations 20, temperature 97.5. HEENT: Head normocephalic. Pupils are reactive and equal. Tongue is moist. Throat is injected. NECK: Supple with no venous distension, no thyromegaly or lymphadenopathy. CHEST: Distant breath sounds with expiratory wheezes throughout both lung qureshi. Prolonged expirations and crackles at the lung bases. HEART: The heart sounds are irregular. S1 and S2 with no murmur. No S3. ABDOMEN: Soft, protuberant without masses. No organomegaly or tenderness. EXTREMITIES: Minimal edema with diminished pulses. Reflexes 1+ with no gross motor deficits. SKIN: No lesions observed. IMPRESSION 1. Acute respiratory failure, resolved. 2. Pulmonary fibrosis with chronic respiratory insufficiency. 3. History of coronary artery disease. 4. Diabetes mellitus type 2. 5. Prostatic hypertrophy. PLAN 1. The patient will be maintained on O2 at 4 liters, also placed on BiPAP if his sats drop into the 80s. 2. We will also get a followup chest x-ray in the a.m. 3. Continue with Solu-Medrol 40 mg every 8 hours IV. 4. Continue with diuretic therapy including Lasix 20 mg daily. 5. The patient will begin nebulized Duo-Neb solution q.i.d. p.r.n. I will follow the case with you Dr. Archuleta, thank you for this consultation. MD JULIENNE Archibald/SHENG /3:23 PM /4:21 PM
[2016-10-26 17:14] LABS: BLOOD, URINE MOD (NEG); GLUCOSE,URINE 1000 mg/dL (NEG); KETONE, URINE TRACE mg/dL (NEG); NITRITE,URINE NEG (NEG); PH, URINE 5.5 (5.0-8.5)
[2016-10-26 17:21] LABS: URINE COLOR DARK-RED (YELLW/STRAW)
[2016-10-26 17:24] LABS: COMMENT (UR) CATH-CULTURE IND; CULTURE IF INDICATED CATH CULTURE IND
--- NOTE | 2016-10-26 19:09 | MA ---
cc: ALEKS WIGGINS DATE: 10/25/2016. INDICATIONS FOR THE PROCEDURE: Non-ST elevation myocardial infarction, Class IV angina. This is an elective procedure. PROCEDURE PERFORMED: 1. Retrograde left heart catheterization with left ventriculography and selective coronary angiography. 2. Rotational atherectomy of the proximal left anterior descending artery. 3. Angioplasty and stenting of the proximal left anterior descending artery. 4. Moderate sedation. ACCESS SITE: Right femoral artery. EQUIPMENT USED: 5-Tajik pigtail catheter. JL-4 and AR modified coronary catheters. XB 4.0 guide. BMW Viper wire. A compliant balloon was used for wire exchange. Diamondback rotational atherectomy device. A 2.0 balloon for pre-dilation. A 2.75 x 30 mm Resolute stent at 10 atmospheres. A 2.7 x 12 mm noncompliant balloon at 25 atmospheres for post-dilation. MEDICATIONS: Versed IV. Fentanyl IV. Heparin IV. IV nitroglycerin. Brilinta 180 milligrams p.o. CONTRAST: Omnipaque 230 cc. COMPLICATIONS: None. ESTIMATED BLOOD LOSS: Less than 10 cc. METHOD OF HEMOSTASIS: Angio-Seal closure. RESULTS OF HEMODYNAMICS: Heart rate 65 beats per minute. Left ventricular end diastolic pressure 8 mmHg. Left ventricle 95.8. Aorta 95/58/76. Left ventricular ejection fraction 55%. Wall motion normal. No mitral regurgitation. CORONARY ANGIOGRAPHY: Left main coronary artery patent. Left anterior descending artery has 90% severely calcified stenosis in the proximal portion. The stenosis in the left anterior descending artery was 24 mm long. Pre TANIYA flow III, post TANIYA flow III, post stenosis 0, type C, severely calcified. Mid and distal left anterior descending artery patent. First diagonal artery patent. Left circumflex artery patent. OM #1 patent. The left posterior descending artery had 40% proximal stenosis. The ramus intermedius was patent. The right coronary artery was a nondominant vessel which was patent. POST INTERVENTION ANGIOGRAPHY: Post intervention angiography revealed excellent patency of the stented segment and no evidence of dissection, thrombosis or embolization. DIAGNOSIS: 1. Severe single-vessel coronary artery disease with 90% calcified stenosis of the proximal left anterior descending artery. 2. Overall preserved left ventricular systolic function. 3. Successful rotational atherectomy, angioplasty, and stenting of the proximal left anterior descending artery. DISPOSITION: Mr. Chicas will be monitored on telemetry after his procedure. We will continue therapy with Brilinta for at least one year and a baby aspirin indefinitely. We will continue aggressive modification of his cardiac risk factors. I will see him back for followup in our office after discharge. MD GRECIA Emerson/ERROL /4:11 PM /6:42 PM LADY
[2016-10-26] MEDS: TAMSULOSIN HCL 0.4 MG CAP PO SCH (20:22)
[2016-10-26] MEDS: MONTELUKAST SODIUM 10 MG TAB PO SCH (20:23)
[2016-10-26] MEDS: ATORVASTATIN 10 MG TAB PO SCH (20:23)
[2016-10-27] VITALS (14 sets, daily range): BP systolic 86–122; BP diastolic 52–58; PULSE 59–81; RESP 20–28; TEMP 97.4–98.6; O2SAT 85–99
[2016-10-27] MEDS: CHLORHEXIDINE GLUCONATE 2 % 1 PACK (2 CLOTHS)(taper/protocol) TOP SCH (00:30)
[2016-10-27] MEDS: TEMAZEPAM 15 MG CAP PO PRN ×2 (00:33→21:18)
[2016-10-27] MEDS: INSULIN NovoLIN REGULAR SUPPLEMENTAL SCALE SQ SCH ×4 (03:02→20:57)
[2016-10-27] MEDS: RESP: ALBUTEROL 2.5 MG/IPRATROPIUM 0.5 MG NEB (SCH) NEB ×4 (03:32→21:28)
--- NOTE | 2016-10-27 04:19 | RADRPT ---
EXAM DATE/TIME: 10/27/2016 03:34 [facility] COMPARISON: CHEST SINGLE AP, October 25, 2016, 19:22. INDICATIONS : Shortness of breath, possible pulmonary disease. MEDICAL HISTORY : Congestive heart failure. SURGICAL HISTORY : Pacemaker. ENCOUNTER: Subsequent ACUITY: 2 days PAIN SCORE: 0/10 LOCATION: Bilateral chest FINDINGS: The cardiac silhouette is enlarged in transverse diameter. A bipolar pacemaker is in place via a left sided approach. There are findings of congestive heart failure with interstitial and alveolar opacit y bilaterally. The findings are improved when compared with the prior exam. Bilateral pleural effusio ns are identified. CONCLUSION: 1. Cardiomegaly and findings of congestive heart failure. The findings are improved when compared wit h the prior exam. Wili Lombardo MD on October 27, 2016 at 4:17 Board Certified Radiologist. This report was verified electronically.
[2016-10-27] MEDS: PANTOPRAZOLE SODIUM 40 MG VIAL IV PUSH SCH (06:16)
[2016-10-27] MEDS: methylPREDNISolone SOD SUCC 40 MG/1 ML VIAL IV PUSH SCH ×2 (06:16→12:46)
[2016-10-27] MEDS: AZTREONAM INJ 1,000 MG in SODIUM CHLORIDE 0.9% INJ 100 ML IV SCH ×3 (06:16→21:01)
[2016-10-27 07:42] LABS: AUTOMATED NEUTROPHIL # 18.4 TH/MM3 (1.8-7.7); BASOPHIL % 0.1 % (0.0-2.0); HEMATOCRIT 33.8 % (39.0-51.0); LYMPH % 3.5 % (9.0-44.0); LYMPHOCYTE # 0.7 TH/MM3 (1.0-4.8); MEAN CELL VOLUME 93.4 FL (80.0-100.0); MEAN CORPUSCULAR HEMOGLOBIN 32.3 PG (27.0-34.0); MEAN CORPUSCULAR HGB CONC 34.5 % (32.0-36.0); MONO % 3.3 % (0.0-8.0); NEUT % 93.1 % (16.0-70.0); PLATELET COUNT 228 TH/MM3 (150-450); RED BLOOD COUNT 3.61 MIL/MM3 (4.50-5.90); RED CELL DISTRIBUTION WIDTH 13.8 % (11.6-17.2); WHITE BLOOD COUNT 19.7 TH/MM3 (4.0-11.0)
[2016-10-27 07:47] LABS: HEMO FLAGS AUTO DIFF
[2016-10-27] MEDS: RESP: ALBUTEROL 2.5 MG/IPRATROPIUM 0.5 MG NEB (SCH) INH ×4 (08:00→22:57)
[2016-10-27] MEDS: CHLORHEXIDINE 0.12% (ORAL KIT) 15 ML CUP MT SCH ×2 (08:00→20:00)
[2016-10-27 08:20] LABS: MAGNESIUM 2.2 MG/DL (1.5-2.5); POTASSIUM 4.4 MEQ/L (3.5-5.1)
[2016-10-27 09:09] LABS: BANDS 9 % (0-6); NEUTROPHIL # MANUAL DIFF 18.7 TH/MM3 (1.8-7.7); POLYS (SEG NEUTROPHILS) 86 % (16-70); WBC DIFF SAMPLE 100
[2016-10-27 09:10] LABS: PLATELET ESTIMATE SMEAR NORMAL (NORMAL); PLATELET MORPHOLOGY NORMAL (NORMAL); SCAN/DIFF FINAL DIFF MANUAL
[2016-10-27] MEDS: TICAGRELOR 90 MG TAB PO SCH ×2 (09:20→20:55)
[2016-10-27] MEDS: FINASTERIDE 5 MG TAB PO SCH (09:20)
[2016-10-27] MEDS: CARVEDILOL 3.125 MG TAB PO SCH ×2 (09:20→20:56)
[2016-10-27] MEDS: HEPARIN SODIUM - SQ 10,000 UNITS/ML VIAL SQ SCH ×2 (09:20→20:57)
[2016-10-27] MEDS: ASPIRIN 81 MG CHEW TAB PO SCH (09:20)
[2016-10-27] MEDS: SODIUM CHLORIDE 0.9% FLUSH 5 ML FLUSH IVF SCH ×2 (09:21→21:18)
--- NOTE | 2016-10-27 09:26 | PD.CARD.PN ---
Subjective Subjective Remarks Doing better. Wants to go home. Mild hematuria in FC noted. Objective Medications Current Medications Medications (Trade) Dose Ordered Sig/Gino Route PRN Reason Start Time Stop Time Status Last Admin Dose Admin Finasteride (Proscar) 5 mg DAILY PO 10/26/16 09:00 10/27/16 09:20 Montelukast Sodium (Singulair) 10 mg HS PO 10/25/16 21:00 10/26/16 20:23 Prednisone (Deltasone) 10 mg TID PO 10/26/16 09:00 Hold Tamsulosin HCl (Flomax) 0.4 mg HS PO 10/25/16 21:00 10/26/16 20:22 Lidocaine HCl (Xylocaine 2% Jelly) 1 applic UNSCH PRN TOP CATHETER INSERTION 10/25/16 18:15 Acetaminophen (Tylenol) 325 mg Q4H PRN PO PAIN SCALE 1 TO 5 10/25/16 18:15 Temazepam (Restoril) 15 mg HS PRN PO SLEEP 10/25/16 18:15 10/27/16 00:33 Aspirin (Aspirin Chew) 81 mg DAILY PO 10/25/16 18:15 10/27/16 09:20 Ticagrelor (Brilinta) 90 mg BID PO 10/26/16 09:00 10/27/16 09:20 Atropine Sulfate (Atropine Inj) 0.5 mg UNSCH PRN IV VAGAL REPONSE 10/25/16 18:15 Carvedilol (Coreg) 3.125 mg BID PO 10/25/16 21:00 10/27/16 09:20 Atorvastatin Calcium (Lipitor) 40 mg HS PO 10/25/16 21:00 10/26/16 20:23 IV Flush (NS Flush) 2 ml UNSCH PRN IVF FLUSH AFTER USING IV ACCESS 10/25/16 20:00 IV Flush (NS Flush) 2 ml BID IVF 10/25/16 21:00 10/27/16 09:21 Chlorhexidine Gluconate 15 ml 15 ml BID@08,20 MT 10/25/16 20:00 Aztreonam/Sodium Chloride (Azactam Inj/NS Inj) 100 ml @ 200 mls/hr Q8H IV 10/25/16 21:00 10/27/16 06:16 Miscellaneous Information Patient in critical care unit? Ass... Q361D XX 10/25/16 23:30 10/25/16 23:26 Chlorhexidine Gluconate (Chlorhexidine 2% Cloth) 3 pack DAILY@04 TOP 10/26/16 04:00 10/30/16 04:01 10/27/16 00:30 Chlorhexidine Gluconate (Chlorhexidine 2% Cloth) 3 pack UNSCH PRN TOP HYGIENIC CARE 10/25/16 23:30 10/30/16 23:20 Dextrose (D50w (Vial) Inj) 25 ml UNSCH PRN IV PUSH HYPOGLYCEMIA-SEE COMMENTS 10/26/16 07:00 Glucagon (Glucagon Inj) 1 mg UNSCH PRN OTHER HYPOGLYCEMIA-SEE COMMENTS 10/26/16 07:00 Pantoprazole Sodium (Protonix Inj) 40 mg Q24H IV PUSH 10/26/16 07:00 10/27/16 06:16 Methylprednisolone Sodium Succinate (SoluMEDROL INJ) 40 mg Q8HR IV PUSH 10/26/16 10:00 10/27/16 06:16 Dextrose (D50w (Vial) Inj) 25 ml UNSCH PRN IV PUSH HYPOGLYCEMIA-SEE COMMENTS 10/26/16 08:45 Glucagon (Glucagon Inj) 1 mg UNSCH PRN OTHER HYPOGLYCEMIA-SEE COMMENTS 10/26/16 08:45 Insulin Human Regular (NovoLIN R SUPPLEMENTAL SCALE) 1 Q6H SQ 10/26/16 08:45 10/27/16 03:02 Heparin Sodium (Porcine) (Heparin Inj) 5,000 units Q12HR SQ 10/27/16 09:00 10/27/16 09:20 Vital Signs / I&O Vital Signs Date Time Temp Pulse Resp B/P Pulse Ox O2 Delivery O2 Flow Rate FiO2 10/27/16 06:00 60 10/27/16 04:00 60 10/27/16 04:00 97.4 60 20 86/53 97 10/27/16 02:00 59 10/27/16 00:00 97.9 74 20 122/57 85 10/27/16 00:00 74 10/26/16 22:00 71 10/26/16 20:00 71 10/26/16 20:00 87 Nasal Cannula 6.00 10/26/16 20:00 98.0 71 24 117/60 87 10/26/16 18:00 75 10/26/16 16:00 73 10/26/16 16:00 97.7 76 109/57 90 10/26/16 14:00 74 10/26/16 12:00 97.9 69 25 105/58 99 10/26/16 12:00 72 10/26/16 10:00 66 I/O 10/26/16 10/26/16 10/26/16 10/27/16 10/27/16 10/27/16 07:00 15:00 23:00 07:00 15:00 23:00 Intake Total 156 ml 493 ml 494 ml 286 ml Output Total 1000 ml 450 ml 575 ml 325 ml Balance -844 ml 43 ml -81 ml -39 ml Intake Oral 240 ml 360 ml 240 ml IV Total 156 ml 253 ml 134 ml 46 ml Output Urine Total 1000 ml 450 ml 575 ml 325 ml # Bowel Movements 0 0 Physical Exam VSS, afeb. No JVD Lungs Few basilar crackles with decreased BS bilat. Heart: RRR Ext: Right groin cath site stable. No edema . Well perfused . Neuro: Intact Laboratory Laboratory Tests Test 10/26/16 10/27/16 14:00 06:35 Urine Color DARK-RED Urine Turbidity CLOUDY Urine pH 5.5 Urine Specific [place] 1.035 Urine Protein 30 mg/dL Urine Glucose (UA) 1000 mg/dL Urine Ketones TRACE mg/dL Urine Occult Blood MOD Urine Nitrite NEG Urine Bilirubin NEG Urine Urobilinogen LESS THAN 2.0 MG/DL Urine Leukocyte Esterase SMALL Urine RBC /hpf Urine WBC /hpf Urine WBC Clumps MANY Urine Yeast (Budding) FEW Microscopic Urinalysis Comment CATH-CULTURE IND White Blood Count 19.7 TH/MM3 Red Blood Count 3.61 MIL/MM3 Hemoglobin 11.7 GM/DL Hematocrit 33.8 % Mean Corpuscular Volume 93.4 FL Mean Corpuscular Hemoglobin 32.3 PG Mean Corpuscular Hemoglobin 34.5 % Concent Red Cell Distribution Width 13.8 % Platelet Count 228 TH/MM3 Mean Platelet Volume 7.0 FL Neutrophils (%) (Auto) 93.1 % Lymphocytes (%) (Auto) 3.5 % Monocytes (%) (Auto) 3.3 % Eosinophils (%) (Auto) 0.0 % Basophils (%) (Auto) 0.1 % Neutrophils # (Auto) 18.4 TH/MM3 Lymphocytes # (Auto) 0.7 TH/MM3 Monocytes # (Auto) 0.7 TH/MM3 Eosinophils # (Auto) 0.0 TH/MM3 Basophils # (Auto) 0.0 TH/MM3 CBC Comment AUTO DIFF Differential Total Cells 100 Counted Neutrophils % (Manual) 86 % Band Neutrophils % 9 % Lymphocytes % 3 % Monocytes % 2 % Neutrophils # (Manual) 18.7 TH/MM3 Differential Comment FINAL DIFF MANUAL Platelet Estimate NORMAL Platelet Morphology Comment NORMAL Red Cell Morphology Comment NORMAL Sodium Level 139 MEQ/L Potassium Level 4.4 MEQ/L Chloride Level 104 MEQ/L Carbon Dioxide Level 26.0 MEQ/L Anion Gap 9 MEQ/L Blood Urea Nitrogen 29 MG/DL Creatinine 0.99 MG/DL Estimat Glomerular Filtration 73 ML/MIN Rate Random Glucose 268 MG/DL Calcium Level 8.6 MG/DL Phosphorus Level 3.4 MG/DL Magnesium Level 2.2 MG/DL Imaging Last 48 hours Impressions Chest X-Ray 10/27/16 0000 Signed Impressions: Service Date/Time: Thursday, October 27, 2016 03:34 - CONCLUSION: 1. Cardiomegaly and findings of congestive heart failure. The findings are improved when compared with the prior exam. Wili Lombardo MD Assessment and Plan Problem List: (1) Pulmonary fibrosis (2) Respiratory distress (3) Arteriosclerotic heart disease (ASHD) (4) S/P coronary artery stent placement (5) Diastolic CHF, acute Assessment and Plan: Improved after IV lasix. Assessment and Plan CV stable today. Improved with pulmonary Rx and IV Lasix. Continue prior cardiac meds and pulmonary Rx. Transfer to [facility] and increase activity as tolerates. D/C FC. Discharge home when stable from pulmonary standpoint. Dr. Pacheco will f/u on Friday. Code Status Full Discussed Condition With Patien, family and staff rn. Christian Benavides MD Oct 27, 2016 09:26
--- NOTE | 2016-10-27 13:10 | HHI.CCPN ---
Subjective Remarks/Hospital Course 76-year-old male with past medical history of coronary artery disease , hyperlipidemia, diabetes mellitus, pulmonary fibrosis with 4 L O2 requirement , diabetes mellitus, who presented to [facility] today for outpatient cardiac catheterization. He underwent atherectomy and drug-eluting stent to the LAD (R femoral approach, s/p angioseal) by Dr. Pacheco. Post procedure (~16:15) he was on nonrebreather. He respiratory distress resulting in Halicat and transfer to ICU. He had been coughing a lot with some sputum production that was blood tinged. I was contacted upon arrival to evaluate patient who is tachypneic in 40s with increased work of breathing with sats 70% on NR. BP 138/71, sinus 70s. Placing on NIPPV. Denies chest pain. Had normal EF 55% by cath. He was recently hospitalized at [facility] for respiratory distress about 2 weeks ago and treated with steroids, nebs, levaquin. He is agreeable to intubation if needed. 10/26 Patient is on BIPAP 15/8 with 40% FIO2. Afebrile. Feeling better he is on 4L oxygen at home for his pulm fibrosis. 10/27: On NC 4L. Did not use BiPAP overnight. Cleared by cardiology for transfer out of ICU. Objective Vital Signs Date Time Temp Pulse Resp B/P Pulse Ox O2 Delivery O2 Flow Rate FiO2 10/27/16 10:03 90 Nasal Cannula 5.00 10/27/16 10:00 65 10/27/16 08:00 98.6 22 114/55 10/26/16 04:26 40 Intake and Output 10/26/16 10/26/16 10/27/16 08:00 16:00 00:00 Intake Total 156 ml 493 ml 494 ml Output Total 1000 ml 450 ml 575 ml Balance -844 ml 43 ml -81 ml Result Diagram: 10/27/16 0635 10/27/16 0635 Other Results Microbiology Date/Time Procedure Status Source Growth 10/25/16 20:22 Legionella Antigen - Final Complete Urine Catheterized Urine PRESUMPTIVE NEGATIVE FOR LEGIONELLA P... 10/26/16 14:00 Streptococcus pneumoniae Antigen (M - Final Complete Urine Catheterized Urine PRESUMPTIVE NEGATIVE FOR STREPTOCOCCU... Imaging Last Impressions Chest X-Ray 10/25/16 0000 Signed Impressions: Service Date/Time: Tuesday, October 25, 2016 19:22 - CONCLUSION: Diffuse interstitial disease. It is difficult to determine if this is acute or chronic. If this is acute it could represent diffuse edema. Chronic interstitial disease could have a similar appearance in the correct clinical situation. Pavan Azar MD Objective Remarks GENERAL: Well-nourished, well-developed patient on NC 4L SKIN: Dry, no diaphoresis. HEAD: Atraumatic. Normocephalic. EYES: Pupils equal and round. No scleral icterus. No injection or drainage. ENT: No nasal bleeding or discharge. Mucous membranes moist. NECK: Trachea midline. No JVD. CARDIOVASCULAR: Regular rate and rhythm, sinus on monitor. No murmurs rubs or gallops. RESPIRATORY: Coarse bibasilar rales without wheezing , b/l equal air entry. GASTROINTESTINAL: Abdomen soft, non-tender, nondistended. Bowel sounds present. MUSCULOSKELETAL: Extremities without clubbing, cyanosis. No hematoma or bleeding noted right groin. Distal pulses intact. No significant edema. NEUROLOGICAL: Awake and alert. No obvious cranial nerve deficits. Motor grossly within normal limits, moving all extremities. A/P Assessment and Plan NEURO: Awake and alert, avoid sedatives. 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 Hold PO prednisone Continue Singulair 10 mg by mouth daily CXR with bilateral interstitial opacities. No prior for comparison. May be secondary ILD CV: CAD Hyperlipidemia Arthrectomy and FATIMAH to LAD per Dr. Pacheco 10/25/16, R femoral approach with angioseal Monitor HR and BP keep MAP>65mmHg Normal EF 55% per cath Continue ASA, Lipitor , Coreg 3.125mg BID, Brilinta 90 mg po bid. Cardiology following, Dr. Pacheco. GI: On Heart healthy diet RENAL/Urology: BPH Continue finasteride 5 mg po daily, Monitor renal function, I/O's, electrolytes replacement as needed. ID: Leukocytosis -?steroid induced Continue empiric abx (Aztreonam IV) given recent IPF exacerbation. Follow up on BC, sputum cx P, strep pneumonia and Legionella urinary Ag negative HEME: Monitor CBC ENDO: Diabetes mellitus Place on medium SSI with accuchecks. PROPH: Heparin subcutaneous for DVT prophylaxis. Protonix 40 mg IV daily for stress ulcer prophylaxis ACCESS: Peripheral IV providing adequate access at this time Level 3 Hospitalist consulted to assume care in am, Transfer to Med Surg with Tele Sam Browne MD Oct 27, 2016 13:09
--- NOTE | 2016-10-27 14:34 | HHI.PR ---
Subjective Remarks He is better. On O2 4L. less cough, and no wheezing. Objective Vital Signs Date Time Temp Pulse Resp B/P Pulse Ox O2 Delivery O2 Flow Rate FiO2 10/27/16 10:03 90 Nasal Cannula 5.00 10/27/16 10:00 65 10/27/16 08:00 99 Nasal Cannula 4.00 10/27/16 08:00 98.6 60 22 114/55 99 10/27/16 08:00 60 10/27/16 06:00 60 10/27/16 04:00 60 10/27/16 04:00 97.4 60 20 86/53 97 10/27/16 02:00 59 10/27/16 00:00 97.9 74 20 122/57 85 10/27/16 00:00 74 10/26/16 22:00 71 10/26/16 20:00 71 10/26/16 20:00 87 Nasal Cannula 6.00 10/26/16 20:00 98.0 71 24 117/60 87 10/26/16 18:00 75 10/26/16 16:00 73 10/26/16 16:00 97.7 76 109/57 90 I/O 10/26/16 10/26/16 10/26/16 10/27/16 10/27/16 10/27/16 07:00 15:00 23:00 07:00 15:00 23:00 Intake Total 156 ml 493 ml 494 ml 286 ml Output Total 1000 ml 450 ml 575 ml 325 ml Balance -844 ml 43 ml -81 ml -39 ml Intake Oral 240 ml 360 ml 240 ml IV Total 156 ml 253 ml 134 ml 46 ml Output Urine Total 1000 ml 450 ml 575 ml 325 ml # Bowel Movements 0 0 Result Diagram: 10/27/16 0635 10/27/16 0635 Objective Remarks GENERAL: This averagely built, elderly man is pale and mildly dyspneic at rest. HEENT: Head normocephalic. Pupils are reactive and equal. Tongue is moist. Throat is injected. NECK: Supple with no venous distension, no thyromegaly or lymphadenopathy. CHEST: Distant breath sounds with expiratory wheezes over both lung qureshi. Prolonged expirations and crackles at the lung bases. HEART: The heart sounds are irregular. S1 and S2 with no murmur. No S3. ABDOMEN: Soft, protuberant without masses. No organomegaly or tenderness. EXTREMITIES: Minimal edema with diminished pulses. Reflexes 1+ with no gross motor deficits. SKIN: No lesions observed. Assessment and Plan Assessment and Plan IMPRESSION 1. Acute respiratory failure, resolved. 2. Pulmonary fibrosis with chronic respiratory insufficiency. 3. History of coronary artery disease. 4. Diabetes mellitus type 2. 5. Prostatic hypertrophy. 6. Pulmonary Edema Plan : 1. Wean o2 to keep sat >90. 2. Continue Nebs qid , duoneb. 3. Cont solumedrol 40 mg bid. 4. Cont antibiotics. 5. Chest X ray in Helen Howard MD Oct 27, 2016 14:34
[2016-10-27] MEDS: TAMSULOSIN HCL 0.4 MG CAP PO SCH (20:56)
[2016-10-27] MEDS: ATORVASTATIN 10 MG TAB PO SCH (20:56)
[2016-10-27] MEDS: DOCUSATE SODIUM 100 MG CAP PO SCH (20:56)
[2016-10-27] MEDS: MONTELUKAST SODIUM 10 MG TAB PO SCH (20:56)
[2016-10-28] VITALS (9 sets, daily range): BP systolic 87–109; BP diastolic 53–65; PULSE 60–68; RESP 20–30; TEMP 97.5–97.8; O2SAT 90–94
[2016-10-28] MEDS: CHLORHEXIDINE GLUCONATE 2 % 1 PACK (2 CLOTHS)(taper/protocol) TOP SCH (04:00)
[2016-10-28] MEDS: RESP: ALBUTEROL 2.5 MG/IPRATROPIUM 0.5 MG NEB (SCH) NEB ×2 (04:15→08:55)
[2016-10-28] MEDS: PANTOPRAZOLE SODIUM 40 MG VIAL IV PUSH SCH (06:46)
[2016-10-28] MEDS: AZTREONAM INJ 1,000 MG in SODIUM CHLORIDE 0.9% INJ 100 ML IV SCH (06:47)
[2016-10-28] MEDS: INSULIN NovoLIN REGULAR SUPPLEMENTAL SCALE SQ SCH ×2 (06:47→13:07)
[2016-10-28 07:07] LABS: AUTOMATED NEUTROPHIL # 14.5 TH/MM3 (1.8-7.7); BASOPHIL % 0.1 % (0.0-2.0); EOSINOPHIL % 0.1 % (0.0-4.0); HEMATOCRIT 35.3 % (39.0-51.0); LYMPH % 5.9 % (9.0-44.0); MEAN CELL VOLUME 94.1 FL (80.0-100.0); MEAN CORPUSCULAR HEMOGLOBIN 31.6 PG (27.0-34.0); MEAN CORPUSCULAR HGB CONC 33.6 % (32.0-36.0); MONO % 5.6 % (0.0-8.0); NEUT % 88.3 % (16.0-70.0); PLATELET COUNT 242 TH/MM3 (150-450); RED BLOOD COUNT 3.75 MIL/MM3 (4.50-5.90); RED CELL DISTRIBUTION WIDTH 13.8 % (11.6-17.2); WHITE BLOOD COUNT 16.4 TH/MM3 (4.0-11.0)
[2016-10-28 07:10] LABS: HEMO FLAGS AUTO DIFF
[2016-10-28 07:43] LABS: ALKALINE PHOSPHATASE 100 U/L (45-117); ALT (GPT) 33 U/L (12-78); ANION GAP 9 MEQ/L (5-15); AST (GOT) 17 U/L (15-37); BICARBONATE 27.5 MEQ/L (21.0-32.0); BLOOD UREA NITROGEN 35 MG/DL (7-18); CHLORIDE 104 MEQ/L (98-107); GLOMERULAR FILTRATION RATE 82 ML/MIN (>89); SODIUM (NA) 140 MEQ/L (136-145); TOTAL BILIRUBIN ADULT 0.5 MG/DL (0.2-1.0)
[2016-10-28] MEDS: CHLORHEXIDINE 0.12% (ORAL KIT) 15 ML CUP MT SCH (08:00)
[2016-10-28] MEDS: RESP: ALBUTEROL 2.5 MG/IPRATROPIUM 0.5 MG NEB (SCH) INH (08:00)
[2016-10-28] MEDS ORDERED: methylPREDNISolone SOD SUCC 40 MG/1 ML VIAL IV PUSH SCH (09:00)
[2016-10-28] MEDS: HEPARIN SODIUM - SQ 10,000 UNITS/ML VIAL SQ SCH (09:27)
[2016-10-28] MEDS: CARVEDILOL 3.125 MG TAB PO SCH (09:28)
[2016-10-28] MEDS: DOCUSATE SODIUM 100 MG CAP PO SCH (09:28)
[2016-10-28] MEDS: TICAGRELOR 90 MG TAB PO SCH (09:28)
[2016-10-28] MEDS: FINASTERIDE 5 MG TAB PO SCH (09:28)
[2016-10-28] MEDS: SODIUM CHLORIDE 0.9% FLUSH 5 ML FLUSH IVF SCH (09:29)
[2016-10-28] MEDS: ASPIRIN 81 MG CHEW TAB PO SCH (09:29)
[2016-10-28 09:33] LABS: SCAN/DIFF AUTO DIFF CONFIRMED
--- NOTE | 2016-10-28 13:04 | HHI.PR ---
Subjective Remarks He has Improved.. On O2 4L. less cough, and no wheezing. On IV meds still. Objective Vital Signs Date Time Temp Pulse Resp B/P Pulse Ox O2 Delivery O2 Flow Rate FiO2 10/28/16 10:00 60 10/28/16 08:55 94 Nasal Cannula 6.00 10/28/16 08:00 97.6 63 30 105/65 92 10/28/16 08:00 92 Nasal Cannula 5.00 10/28/16 08:00 63 10/28/16 06:00 60 10/28/16 04:00 64 10/28/16 04:00 90 Nasal Cannula 5.00 10/28/16 04:00 97.8 64 24 109/55 90 10/28/16 02:00 62 10/28/16 00:00 97.5 63 20 99/58 92 10/28/16 00:00 63 10/28/16 00:00 92 Nasal Cannula 5.00 10/27/16 22:00 81 10/27/16 21:28 94 Nasal Cannula 5.00 10/27/16 20:00 63 10/27/16 20:00 93 Nasal Cannula 5.00 10/27/16 20:00 98.1 63 28 106/56 93 10/27/16 18:00 63 10/27/16 16:00 96 Nasal Cannula 5.00 10/27/16 16:00 97.4 65 20 97/52 95 10/27/16 16:00 60 10/27/16 14:00 64 I/O 10/27/16 10/27/16 10/27/16 10/28/16 10/28/16 10/28/16 07:00 15:00 23:00 07:00 15:00 23:00 Intake Total 286 ml 720 ml 617 ml 158 ml Output Total 325 ml 525 ml 500 ml 325 ml Balance -39 ml 195 ml 117 ml -167 ml Intake Oral 240 ml 480 ml 480 ml 120 ml IV Total 46 ml 240 ml 137 ml 38 ml Output Urine Total 325 ml 525 ml 500 ml 325 ml # Bowel Movements 0 0 1 0 Result Diagram: 10/28/1623 10/28/16 0623 Objective Remarks GENERAL: This averagely built, elderly man is pale and not at rest. HEENT: Head normocephalic. Pupils are reactive and equal. Tongue is moist. Throat is injected. NECK: Supple with no venous distension, no thyromegaly or lymphadenopathy. CHEST: Distant breath sounds with expiratory wheezes over both lung qureshi. and crackles at the lung bases. HEART: The heart sounds are irregular. S1 and S2 with no murmur. No S3. ABDOMEN: Soft, protuberant without masses. No organomegaly or tenderness. EXTREMITIES: No edema with diminished pulses. Reflexes 1+ with no gross motor deficits. SKIN: No lesions observed. Assessment and Plan Assessment and Plan IMPRESSION 1. Acute respiratory failure, resolved. 2. Pulmonary fibrosis with chronic respiratory insufficiency. 3. History of coronary artery disease. 4. Diabetes mellitus type 2. 5. Prostatic hypertrophy. 6. Pulmonary Edema Plan : 1. Wean o2 to keep sat >90. 2. Continue Nebs qid , duoneb. 3. Add Predniosne 20 mg bid and taper to 30 mg in 1 week 4. Cont antibiotics.Switch to PO levaquin 500 mg daily for 5 days 5. D/C Solumedrol 6. Home per Helen Mcmahon MD Oct 28, 2016 13:04
[2016-10-28] MEDS ORDERED: CARV3.125 PO (14:22)
[2016-10-28] MEDS ORDERED: ALBU0.08 NEB (14:22)
[2016-10-28] MEDS ORDERED: LIPI10TA PO (14:22)
[2016-10-28] MEDS ORDERED: LEVA500T PO (14:22)
[2016-10-28] MEDS ORDERED: BRIL90TA PO (14:22)
[2016-10-28] MEDS ORDERED: Aspirin Chew PO (14:22)
--- NOTE | 2016-10-28 14:22 | PD.CARD.PN ---
Subjective Subjective Remarks No CP, SOB improved Objective Medications Current Medications Medications (Trade) Dose Ordered Sig/Gino Route Start Time Stop Time Status Last Admin (Proscar) 5 mg DAILY PO 10/26/16 09:00 10/28/16 09:28 (Singulair) 10 mg HS PO 10/25/16 21:00 10/27/16 20:56 (Deltasone) 10 mg TID PO 10/26/16 09:00 Hold (Flomax) 0.4 mg HS PO 10/25/16 21:00 10/27/16 20:56 (Xylocaine 2% Jelly) 1 applic UNSCH PRN TOP 10/25/16 18:15 (Tylenol) 325 mg Q4H PRN PO 10/25/16 18:15 (Restoril) 15 mg HS PRN PO 10/25/16 18:15 10/27/16 21:18 (Aspirin Chew) 81 mg DAILY PO 10/25/16 18:15 10/28/16 09:29 (Brilinta) 90 mg BID PO 10/26/16 09:00 10/28/16 09:28 (Atropine Inj) 0.5 mg UNSCH PRN IV 10/25/16 18:15 (Coreg) 3.125 mg BID PO 10/25/16 21:00 10/28/16 09:28 (Lipitor) 40 mg HS PO 10/25/16 21:00 10/27/16 20:56 (NS Flush) 2 ml UNSCH PRN IVF 10/25/16 20:00 (NS Flush) 2 ml BID IVF 10/25/16 21:00 10/28/16 09:29 (Peridex 0.12% Liq) 15 ml BID@08,20 MT 10/25/16 20:00 Miscellaneous Information Patient in critical care unit? Ass... Q361D XX 10/25/16 23:30 10/25/16 23:26 (Chlorhexidine 2% Cloth) 3 pack DAILY@04 TOP 10/26/16 04:00 10/30/16 04:01 10/28/16 04:00 (Chlorhexidine 2% Cloth) 3 pack UNSCH PRN TOP 10/25/16 23:30 10/30/16 23:20 (Protonix Inj) 40 mg Q24H IV PUSH 10/26/16 07:00 10/28/16 06:46 (D50w (Vial) Inj) 25 ml UNSCH PRN IV PUSH 10/26/16 08:45 (Glucagon Inj) 1 mg UNSCH PRN OTHER 10/26/16 08:45 (Heparin Inj) 5,000 units Q12HR SQ 10/27/16 09:00 10/28/16 09:27 (NovoLIN R SUPPLEMENTAL SCALE) 1 ACHS SQ 10/27/16 21:00 10/28/16 13:07 (Colace) 100 mg BID PO 10/27/16 21:00 10/28/16 09:28 (Levaquin) 500 mg DAILY PO 10/29/16 09:00 Vital Signs / I&O Vital Signs Date Time Temp Pulse Resp B/P Pulse Ox O2 Delivery O2 Flow Rate FiO2 10/28/16 14:00 68 10/28/16 12:00 92 Nasal Cannula 5.00 10/28/16 12:00 65 10/28/16 12:00 97.5 65 27 87/53 93 10/28/16 10:00 60 10/28/16 08:55 94 Nasal Cannula 6.00 10/28/16 08:00 97.6 63 30 105/65 92 10/28/16 08:00 92 Nasal Cannula 5.00 10/28/16 08:00 63 10/28/16 06:00 60 10/28/16 04:00 64 10/28/16 04:00 90 Nasal Cannula 5.00 10/28/16 04:00 97.8 64 24 109/55 90 10/28/16 02:00 62 10/28/16 00:00 97.5 63 20 99/58 92 10/28/16 00:00 63 10/28/16 00:00 92 Nasal Cannula 5.00 10/27/16 22:00 81 10/27/16 21:28 94 Nasal Cannula 5.00 10/27/16 20:00 63 10/27/16 20:00 93 Nasal Cannula 5.00 10/27/16 20:00 98.1 63 28 106/56 93 10/27/16 18:00 63 10/27/16 16:00 96 Nasal Cannula 5.00 10/27/16 16:00 97.4 65 20 97/52 95 10/27/16 16:00 60 I/O 10/27/16 10/27/16 10/27/16 10/28/16 10/28/16 10/28/16 07:00 15:00 23:00 07:00 15:00 23:00 Intake Total 286 ml 720 ml 617 ml 158 ml 480 ml Output Total 325 ml 525 ml 500 ml 325 ml 450 ml Balance -39 ml 195 ml 117 ml -167 ml 30 ml Intake Oral 240 ml 480 ml 480 ml 120 ml 480 ml IV Total 46 ml 240 ml 137 ml 38 ml 0 ml Output Urine Total 325 ml 525 ml 500 ml 325 ml 450 ml # Bowel Movements 0 0 1 0 0 Physical Exam GENERAL: On O2. SKIN: Warm and dry. HEAD: Normocephalic. EYES: No scleral icterus. No injection or drainage. NECK: Supple, trachea midline. No JVD or lymphadenopathy. CARDIOVASCULAR: Regular rate and rhythm without murmurs, gallops, or rubs. RESPIRATORY: Breath sounds equal bilaterally. No accessory muscle use. Few rhonchi. GASTROINTESTINAL: Abdomen soft, non-tender, nondistended. MUSCULOSKELETAL: No cyanosis, or edema. Laboratory Laboratory Tests Test 10/28/16 06:23 White Blood Count 16.4 TH/MM3 Red Blood Count 3.75 MIL/MM3 Hemoglobin 11.9 GM/DL Hematocrit 35.3 % Mean Corpuscular Volume 94.1 FL Mean Corpuscular Hemoglobin 31.6 PG Mean Corpuscular Hemoglobin 33.6 % Concent Red Cell Distribution Width 13.8 % Platelet Count 242 TH/MM3 Mean Platelet Volume 7.1 FL Neutrophils (%) (Auto) 88.3 % Lymphocytes (%) (Auto) 5.9 % Monocytes (%) (Auto) 5.6 % Eosinophils (%) (Auto) 0.1 % Basophils (%) (Auto) 0.1 % Neutrophils # (Auto) 14.5 TH/MM3 Lymphocytes # (Auto) 1.0 TH/MM3 Monocytes # (Auto) 0.9 TH/MM3 Eosinophils # (Auto) 0.0 TH/MM3 Basophils # (Auto) 0.0 TH/MM3 CBC Comment AUTO DIFF Differential Comment AUTO DIFF CONFIRMED Sodium Level 140 MEQ/L Potassium Level 4.0 MEQ/L Chloride Level 104 MEQ/L Carbon Dioxide Level 27.5 MEQ/L Anion Gap 9 MEQ/L Blood Urea Nitrogen 35 MG/DL Creatinine 0.90 MG/DL Estimat Glomerular Filtration 82 ML/MIN Rate Random Glucose 209 MG/DL Calcium Level 8.7 MG/DL Total Bilirubin 0.5 MG/DL Aspartate Amino Transf 17 U/L (AST/SGOT) Alanine Aminotransferase 33 U/L (ALT/SGPT) Alkaline Phosphatase 100 U/L Total Protein 6.0 GM/DL Albumin 2.8 GM/DL Imaging Last Impressions Chest X-Ray 10/27/16 0000 Signed Impressions: Service Date/Time: Thursday, October 27, 2016 03:34 - CONCLUSION: 1. Cardiomegaly and findings of congestive heart failure. The findings are improved when compared with the prior exam. Wili Lombardo MD Assessment and Plan Problem List: (1) Arteriosclerotic heart disease (ASHD) (2) S/P coronary artery stent placement (3) Pulmonary fibrosis (4) Respiratory distress (5) Diastolic CHF, acute Assessment and Plan CHF improved. Continue Brilinta and ASA post stent placement. Renal fx stable. Cleared for discharge by pulmonary medicine. Discharge home. Will schedule f/u w me next week. Justin Pacheco MD Oct 28, 2016 14:22
--- NOTE | 2016-10-28 14:24 | HHI.FF ---
Face to Face Verification Diagnosis: (1) Pulmonary fibrosis (2) Respiratory distress (3) Arteriosclerotic heart disease (ASHD) Physical Therapy Order: Evaluate and Treat Home Health Nursing Order: Medical education Nursing assessment with vital signs I have seen patient Hamilton Chicas on 10/28/16. My clinical findings support the need for the requested home health care services because: Ltd mobility - disease progression Patient has SOB I certify that my clinical findings support that this patient is homebound because: Unsafe to leave home unassisted Meka Mark MD Oct 28, 2016 14:24
--- NOTE | 2016-10-28 14:59 | MB ---
cc: JUSTINO TOLLIVER MD, JAWED DATE OF CONSULTATION: 10/28/2016 DATE OF : 1940 REASON FOR CONSULTATION Assist in medical management. HISTORY OF PRESENT ILLNESS The patient is a very pleasant 76-year-old male who was admitted after a cardiac catheterization and drug-eluting stent by Dr. Pacheco. After the procedure the patient had respiratory distress. He was on a non-rebreather mask and he was transferred to the ICU. The patient was seen by the mother's helper and he was admitted because of respiratory failure. The patient was treated appropriately. A pulmonary consultation was called in. The patient was seen and followed by the mother's helper and primary care coordinator. The patient was seen and followed by the chemistry technologist. During his stay the patient's pulmonary status improved and now he is back to baseline where he takes 3-4 liters of oxygen and has his usual chronic shortness of breath. He has limited activity because of his pulmonary fibrosis. He has no chest pain. He has no other associated symptoms. The patient is seen in the ICU with the RN. REVIEW OF SYSTEMS A 10-point review of systems is as described above, otherwise unremarkable. MEDICATIONS Medications reviewed, please see EMR. ALLERGIES The patient has an allergy to PENICILLIN. SOCIAL HISTORY The patient used to smoke in the past. He quit smoking approximately 1-2 years ago. He still drinks occasional alcohol. He does not do any drugs. FAMILY HISTORY Noncontributory. MEDICATIONS Reviewed. PAST MEDICAL HISTORY 1. CAD. 2. Diabetes. 3. Hyperlipidemia. 4. Pulmonary fibrosis, oxygen-dependent. 5. BPH. PHYSICAL EXAMINATION GENERAL: The patient is alert and oriented x3, well-built, well-nourished, appropriate for age and condition, sitting in the recliner without any apparent distress. VITAL SIGNS: Afebrile. Pulse 68, respiratory rate 22, blood pressure 88/56. HEENT: Head is atraumatic, normocephalic. Negative conjunctival injection. No icterus. Mouth unremarkable. NECK: Supple. No increased JVD. Negative thyromegaly. Central trachea. LUNGS: Distant air entry with occasional expiratory wheeze and occasional crackles in the bases. CARDIOVASCULAR: S1 and S2 audible. Unable to hear any S3 gallops. ABDOMEN: Soft. No organomegaly. Positive bowel sounds. EXTREMITIES: No cyanosis or pedal edema appreciated. MISSILE PAD MECHANIC: Alert and oriented. Normal facial features. Moving all his extremities. SKIN: Warm and dry. PSYCH: Appropriate mood and affect. INVESTIGATIONS WBC 15.4, hemoglobin 11.9, hematocrit 35.3, platelet count 242. BUN 35, random goes 209. UA report reviewed. Urine culture shows no growth in 48 hours. ABG report from October 28 is reviewed. Chest x-ray from October 27 shows cardiomegaly and a finding of congestive heart failure. The findings are improved when compared to the prior exam. ASSESSMENT 1. Acute respiratory failure, resolved, now back to baseline. 2. Pulmonary fibrosis with chronic respiratory insufficiency, O2 dependent. 3. Coronary artery disease, status post drug-eluting stent. 4. Diabetes mellitus type 2. 5. Benign prostatic hypertrophy. PLAN/RECOMMENDATIONS The patient was admitted to the ICU yesterday, order for transfer to the floor. The patient is now back to his baseline. As per cardiology he can be discharged. As per pulmonary he can be discharged. Discussed with Dr. Howard. Okay to discharge today. Medications reviewed in detail. Discussed with RN. The patient is overall stable to be discharged. Plan to discharge him home with home health care. The patient needs to follow with pulmonary, cardiology and his primary care doctor. The patient has an appointment Dr. Padilla on Friday and he will see cardiology in one week and his primary care doctor in one week. The patient had a nebulizer machine at home and oxygen at home. Medications reviewed with the RN. Prescriptions given as indicated. The patient understood all. As the patient is overall stable and in fair condition back to his baseline, plan to discharge him home with home health care. For further details please see the chart. Meka Mark MD JP/MAURICIO /2:29 PM /2:42 PM
[2016-10-29] MEDS ORDERED: LEVOFLOXACIN 500 MG TAB PO SCH (09:00)
--- NOTE | 2017-01-04 21:15 | HHI.DS ---
Discharge Summary Admission Date Oct 25, 2016 at 20:05 Discharge Date: Oct 28, 2016 Admitting Diagnosis (1) Pulmonary fibrosis (2) Respiratory distress (3) Arteriosclerotic heart disease (ASHD) (4) Diastolic CHF, acute (5) Leukocytosis (6) Respiratory failure, acute (7) S/P coronary artery stent placement Procedures Oct 25, 2016--atherectomy and drug-eluting stent to the LAD (R femoral approach , s/p angioseal) by Dr. Pacheco. Imaging Last Impressions Chest X-Ray 10/27/16 0000 Signed Impressions: Service Date/Time: Thursday, October 27, 2016 03:34 - CONCLUSION: 1. Cardiomegaly and findings of congestive heart failure. The findings are improved when compared with the prior exam. Wili Lombardo MD Hospital Course The patient is a very pleasant 76-year-old male who was admitted after a cardiac catheterization and drug-eluting stent by Dr. Pacheco. After the procedure the patient had respiratory distress. He was on a non-rebreather mask and he was transferred to the ICU. The patient was seen by the phone representative and he was admitted because of respiratory failure. The patient was treated appropriately. A pulmonary consultation was called in. The patient was seen and followed by the phone representative and director of flight operations. The patient was seen and followed by the vp product. During his stay the patient's pulmonary status improved and went back to baseline where he takes 3-4 liters of oxygen and has his usual chronic shortness of breath. He has limited activity because of his pulmonary fibrosis. He has no chest pain. He has no other associated symptoms. INVESTIGATIONS WBC 15.4, hemoglobin 11.9, hematocrit 35.3, platelet count 242. BUN 35, random goes 209. UA report reviewed. Urine culture shows no growth in 48 hours. ABG report from October 28 is reviewed. Chest x-ray from October 27 shows cardiomegaly and a finding of congestive heart failure. The findings are improved when compared to the prior exam. The patient was transferred to the floor. The patient went back to his baseline. As per cardiology he can be discharged. As per pulmonary he can be discharged. Discussed with Dr. Howard. Okay to discharge today. Medications reviewed in detail. Discussed with RN. The patient overall stable to be discharged. Plan to discharge him home with home health care. The patient needs to follow with pulmonary, cardiology and his primary care doctor. The patient has an appointment Dr. Padilla on Friday and he will see cardiology in one week and his primary care doctor in one week. The patient had a nebulizer machine at home and oxygen at home. Medications reviewed with the RN. Prescriptions given as indicated. The patient understood all. As the patient is overall stable and in fair condition back to his baseline, plan to discharge him home with home health care. Pt Condition on Discharge: Fair Discharge Disposition: Disch w/ Home Health Serv Discharge Instructions DIET: Follow Instructions for: Diabetic Diet Activities you can perform: Weight Bearing as Rajendra Follow up Referrals: Cardiology - 1 Week PCP Follow-up - 1 Week Pulmonology - 3-5 Days New Medications: Albuterol Neb (Albuterol Neb) 2.5 Mg/3 Ml Neb 2.5 MG NEB Q4HR PRN WHEEZING #60 NEBULE Atorvastatin (Lipitor) 10 Mg Tab 40 MG PO HS cad #30 TAB Carvedilol (Coreg) 3.125 Mg Tab 3.125 MG PO BID cad #60 TAB Levofloxacin (Levaquin) 500 Mg Tab 500 MG PO DAILY BRONCHITIS #7 TAB Ticagrelor (Brilinta) 90 Mg Tab 90 MG PO BID cad WITH A STENT #60 TAB ([Aspirin Chew]) 81 MG CHEW 81 MG PO DAILY #30 TAB.CHEW Continued Medications: Finasteride (Finasteride) 5 Mg Tab 5 MG PO DAILY Do not crush. Manage Prostate Problems #30 Ref 0 TAB Insulin Detemir Inj (Levemir Inj) 1,000 unit/ 10 ML Vial 8 UNITS SQ Do not mix with any other Insulin. Blood Sugar Management Ref 0 VIAL Ipratropium-Albuterol Neb (Duoneb) 0.5-2.5 Mg/3 Ml Neb 1 NEBULE INH Q8HR NEB Breathing Treatment #90 Ref 0 NEBULE Metformin (Metformin) 1,000 Mg Tab 1000 MG PO BIDPC With meals Blood Sugar Management #60 Ref 0 TAB Montelukast (Montelukast) 10 Mg Tab 10 MG PO HS #30 Ref 0 TAB Prednisone (Prednisone) 10 Mg Tab 10 MG PO TID Ref 0 TAB Sulfamethoxazole-Trimethoprim (Bactrim) 400-80 Mg Tab 1 TAB PO BID Infection Ref 0 TAB Tamsulosin (Tamsulosin) 0.4 Mg Cap 0.4 MG PO HS Manage Prostate Problems #30 Ref 0 CAP ([Home Oxygen]) 4 LITER KEVON.CANULA DAILY Adele Donovan. [facility] Jan 04, 2017 21:15
== END 2016-10-28 15:10 | disposition home health service (06) | DRG 981 ==
LOC: HDOC 09:28 → HDIC 09:29 → HCIS 17:37 → HDOC 20:03 → HIME 20:05
PROVIDERS: ADMIT Internal Medicine Interventional Cardiology; ATTEND Internal Medicine Interventional Cardiology
PROC: 02C03ZZ Extirpation of Matter from Coronary Artery, One Artery, Percutaneous Approach (ICD-10-PCS; 2016-10-25)
PROC: B2151ZZ Fluoroscopy of Left Heart using Low Osmolar Contrast (ICD-10-PCS; 2016-10-25)
PROC: B2111ZZ Fluoroscopy of Multiple Coronary Arteries using Low Osmolar Contrast (ICD-10-PCS; 2016-10-25)
PROC: 4A023N7 Measurement of Cardiac Sampling and Pressure, Left Heart, Percutaneous Approach (ICD-10-PCS; 2016-10-25)
PROC: 5A09457 Assistance with Respiratory Ventilation, 24-96 Consecutive Hours, Continuous Positive Airway Pressure (ICD-10-PCS; 2016-10-25)
PROC: 027034Z Dilation of Coronary Artery, One Artery with Drug-eluting Intraluminal Device, Percutaneous Approach (ICD-10-PCS; principal; 2016-10-25 12:15)
DX: J95.821 Acute postprocedural respiratory failure (principal); I50.31 Acute diastolic (congestive) heart failure; J67.9 Hypersensitivity pneumonitis due to unspecified organic dust; Z99.81 Dependence on supplemental oxygen; J44.9 Chronic obstructive pulmonary disease, unspecified; I25.118 Atherosclerotic heart disease of native coronary artery with other forms of angina pectoris; N40.0 Benign prostatic hyperplasia without lower urinary tract symptoms; T38.0X5A Adverse effect of glucocorticoids and synthetic analogues, initial encounter; D72.829 Elevated white blood cell count, unspecified; E78.5 Hyperlipidemia, unspecified; R31.9 Hematuria, unspecified; I25.2 Old myocardial infarction; Z87.891 Personal history of nicotine dependence; Z88.0 Allergy status to penicillin
CPT/HCPCS: 36600; 71010; 80048; 80053; 80061; 81001; 82550; 82805; 82948; 83735; 84100; 84484; 85002; 85007; 85025; 85027; 85610; 85730; 87040; 87070; 87086; 87205; 87449; 87641; 92933; 93005; 93458; 94002; 94003; 94640; 94664; C1725; C1760; C1769; C1874; C1887; C1893; C9113; G0269; J1644; J1940; J2250; J2920; J2930; J3010; Q9967